=== PATIENT | male | born 1950 | race Caucasian/White ===

== ENCOUNTER 2016-03-23 20:35 | Emergency (ER) | payer OTHER ==
[~2016-03-23] VITALS: Ht 177.8 cm; Wt 110.2 kg
[~2016-03-23 20:35] MED LIST: AMLO-110 PO; ASPI81TA28 PO; CITA20TA4 PO; LOSA1TAB38 PO; POTASSIUM PO; ROSU5TAB PO; TORS20TA2 PO
[2016-03-23 20:46] VITALS: TEMP 37.1; Ht 177.8 cm; Wt 110.2 kg
[2016-03-23 20:51] VITALS: O2SAT 95
[2016-03-23] MEDS ORDERED: MoRPHine SULFATE 4 MG/ML 1 ML CARP\\VIAL IV STA (21:02)
[2016-03-23] MEDS ORDERED: ONDANSETRON INJ 2 MG/ML 2 ML VIAL IV STA (21:02)
[2016-03-23 21:12] LABS: BASO % 0.4 %; BASO ABS # 0.04 K/uL (0-0.2); COMPLETE YES; EOS % 3.4 %; HEMATOCRIT 48.8 % (42-52); IG% 0.3 %; LYMPH % 16.6 %; LYMPH ABS # 1.55 K/uL (1.2-3.4); MEAN CELL VOLUME 88.4 fL (80-100); MEAN CORPUSCULAR HEMOGLOBIN 32.4 pg (25-34); MEAN CORPUSCULAR HGB CONC 36.7 g/dl (32-36); MONO % 8.1 %; NEUT % 71.2 %; PLATELET COUNT 135 K/uL (130-400); RED BLOOD COUNT 5.52 M/uL (4.7-6.1); WHITE BLOOD COUNT 9.34 K/uL (4.8-10.8)
[2016-03-23 21:29] LABS: BUN/CREATININE RATIO 14.5 (10-20); CALCIUM 8.9 mg/dl (8.5-10.1); CREATININE 0.97 mg/dl (0.60-1.40); POTASSIUM 3.7 mmol/L (3.5-5.1)
[2016-03-23] MEDS ORDERED: POTA20TA16 PO (21:32)
[2016-03-23] MEDS ORDERED: INSDGI SC (21:32)
[2016-03-23] MEDS ORDERED: CITA20TA9 PO (21:35)
[2016-03-23] MEDS ORDERED: ASTN (21:35)
[2016-03-23] MEDS ORDERED: VNTHFA/IN INH (21:35)
[2016-03-23] MEDS ORDERED: ASPI-435 PO (21:35)
[2016-03-23] MEDS ORDERED: CAND1TAB17 PO (21:35)
[2016-03-23] MEDS ORDERED: ACETAMINOPHEN 500 MG TAB PO STA (21:49)
[2016-03-23] MEDS ORDERED: TRIA1SPR4 NAE (21:52)
[2016-03-23] MEDS ORDERED: AMLODIPINE BESYLATE 5 MG TAB PO ONE (22:15)
--- NOTE | 2016-03-23 22:43 | DIAGNOSTIC IMAGING REPORT ---
HEAD CT NONCONTRAST CT DOSE: 537.48 mGy.cm HISTORY: Headache. TECHNIQUE: Multiaxial CT images of the head were performed without the use of intravenous contrast. Automated exposure control was utilized for this study. Comparison: Head CT 10/10/2012. Findings: The paranasal sinuses and mastoid air cells are clear. The calvarium and skull base are intact. The ventricles and sulci are within normal limits. There is no mass, hematoma, midline shift, or acute infarct. The old small lacunar infarct within the left hemipons remains unchanged. Impression: No significant change compared to the prior study. No acute intracranial abnormality. Electronically signed by: Marcelo Caputo M.D. 03/23/2016 10:41 PM Dictated Date/Time: 03/23/2016 10:38 PM
[2016-03-23 22:54] VITALS: BP 173/88; PULSE 60; O2SAT 96
--- NOTE | 2016-03-23 23:02 | EMERGENCY ROOM VISIT NOTE ---
History Report prepared by Humberto: Ganga Rasmussen Under the Supervision of: Dr. Krzysztof Nolan D.O. First contact with patient: 20:43 Chief Complaint: HYPERTENSION Stated Complaint: HIGH BLOOD PRESSURE, FULLER History of Present Illness The patient is a 66 year old male who presents to the Emergency Room with complaints of hypertension that began recently. 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 The patient is not currently in any pain. The patient was getting 4 teeth pulled today when his blood pressure was elevated. He was feeling okay when he left; however, he began to get a headache in both of his temples while having his second or third tooth removed. The patient currently takes Aspirin, Celexa 20 mg 1 a day, Atacand 4 mg 1 a day, Torsemide 20 mg 1 a day, Norvasc 5 mg twice a day, Clorcon half tab daily 20 mg. He denies any shortness of breath, chest pain, numbness, and weakness. He has a past medical history of a stroke. He states that this does not feel like his prior stroke. Source of History: patient Onset: recently Position: other (global) Symptom Intensity: 196/86 Quality: other (HTN) Timing: other (persistent) Associated Symptoms: + headache, No SOB, No chest pain, No numbness, No weakness Review of Systems See HPI for pertinent positives & negatives. A total of 10 systems reviewed and were otherwise negative. Past Medical & Surgical Medical Problems: (1) Benign hypertension (2) CVA (3) Diabetes (4) Heart disease Family History Diabetes mellitus FH: cancer FH: gallbladder disease FH: heart disease FH: lung disease Hypertension Social History Smoking Status: Former Smoker Smokeless Tobacco Use: Yes Alcohol Use: none Drug Use: none Marital Status: Housing Status: lives with significant other Occupation Status: retired Current/Historical Medications Scheduled Amlodipine (Norvasc), 5 MG PO DAILY Aspirin (Aspirin Ec), 81 MG PO DAILY Candesartan Cilexetil (Candesartan Cilexetil), 1 TAB PO DAILY Citalopram Hydrobromide (Celexa), 20 MG PO DAILY Insulin Glargine (Lantus), 20 UNIT SC QPM Potassium Ext Rel (Klor-Con), 10 MEQ PO DAILY Torsemide (Demadex), 20 MG PO DAILY Triamcinolone Acetonide (Nasal (Nasacort Allergy 24Hr), 2 SPRAYS ANA DAILY Scheduled PRN Albuterol Hfa (Ventolin Hfa), 2 PUFFS INH QID PRN for SOB/Wheezing Azelastine Hcl (Astelin Nasal [place]), 1 SPRAYS NA BID PRN for Nasal Congestion Allergies Coded Allergies: BEE STING (Verified Allergy, Severe, ., 04/22/10) Carvedilol (Verified Allergy, extreme fatigue.pain,difficulty walking, sensitivity to sun, 10/10/12) per [facility] Physical Exam Vital Signs Date Time Temp Pulse Resp B/P Pulse Ox O2 Delivery O2 Flow Rate FiO2 03/23/16 22:54 60 18 173/88 96 Room Air 03/23/16 22:21 60 18 196/97 96 03/23/16 22:00 56 15 213/92 95 03/23/16 21:45 63 16 220/95 94 03/23/16 21:30 63 17 201/94 95 03/23/16 21:15 53 12 213/92 94 03/23/16 20:52 64 18 195/99 95 Room Air 03/23/16 20:52 62 03/23/16 20:51 95 Room Air 03/23/16 20:46 37.1 62 14 214/132 96 Room Air Physical Exam GENERAL: alert, well appearing, well nourished, no distress, non-toxic, sitting up in bed EYE EXAM: normal conjunctiva, PERRL and EOM's intact OROPHARYNX: no exudate, no erythema, lips, buccal mucosa, and tongue normal and mucous membranes are moist, partial plate in the upper along with bleeding. EAR: Right canal with mild bleeding from obvious trauma NECK: supple, no nuchal rigidity, no adenopathy, non-tender LUNGS: Clear to auscultation. Normal chest wall mechanics HEART: no murmurs, S1 normal and S2 normal, ABDOMEN: abdomen soft, non-tender, normo-active bowel sounds, no masses, no rebound or guarding. BACK: Back is symmetrical on inspection and there is no deformity, no midline tenderness, no CVA tenderness. SKIN: no rashes and no bruising UPPER EXTREMITIES: upper extremities are grossly normal. LOWER EXTREMITIES: No pitting edema. NEURO EXAM: Normal sensorium, cranial nerves II-XII intact, normal speech, no weakness of arms, no weakness of legs. No drift. Finger to nose intact. Gross sensation intact. Medical Decision & Procedures ER Provider Diagnostic Interpretation: Radiology results have been interpreted by the radiologist and reviewed by me. HEAD CT NONCONTRAST CT DOSE: 537.48 mGy.cm HISTORY: Headache. TECHNIQUE: Multiaxial CT images of the head were performed without the use of intravenous contrast. Automated exposure control was utilized for this study. Comparison: Head CT 10/10/2012. Findings: The paranasal sinuses and mastoid air cells are clear. The calvarium and skull base are intact. The ventricles and sulci are within normal limits. There is no mass, hematoma, midline shift, or acute infarct. The old small lacunar infarct within the left hemipons remains unchanged. Impression: No significant change compared to the prior study. No acute intracranial abnormality. Electronically signed by: Marcelo Caputo M.D. 03/23/2016 10:41 PM Dictated Date/Time: 03/23/2016 10:38 PM Laboratory Results 03/23/16 20:50 Red Blood Count 5.52, Mean Corpuscular Volume 88.4, Mean Corpuscular Hemoglobin 32.4, Mean Corpuscular Hemoglobin Concent 36.7, Mean Platelet Volume 12.0, Neutrophils (%) (Auto) 71.2, Lymphocytes (%) (Auto) 16.6, Monocytes (%) (Auto) 8.1, Eosinophils (%) (Auto) 3.4, Basophils (%) (Auto) 0.4, Neutrophils # (Auto) 6.64, Lymphocytes # (Auto) 1.55, Monocytes # (Auto) 0.76, Eosinophils # (Auto) 0.32, Basophils # (Auto) 0.04 03/23/16 20:50 Test 03/23/16 20:50 White Blood Count 9.34 K/uL (4.8-10.8) Red Blood Count 5.52 M/uL (4.7-6.1) Hemoglobin 17.9 g/dL (14.0-18.0) Hematocrit 48.8 % (42-52) Mean Corpuscular Volume 88.4 fL (80-100) Mean Corpuscular Hemoglobin 32.4 pg (25-34) Mean Corpuscular Hemoglobin Concent 36.7 g/dl (32-36) Platelet Count 135 K/uL (130-400) Mean Platelet Volume 12.0 fL (7.4-10.4) Neutrophils (%) (Auto) 71.2 % Lymphocytes (%) (Auto) 16.6 % Monocytes (%) (Auto) 8.1 % Eosinophils (%) (Auto) 3.4 % Basophils (%) (Auto) 0.4 % Neutrophils # (Auto) 6.64 K/uL (1.4-6.5) Lymphocytes # (Auto) 1.55 K/uL (1.2-3.4) Monocytes # (Auto) 0.76 K/uL (0.11-0.59) Eosinophils # (Auto) 0.32 K/uL (0-0.5) Basophils # (Auto) 0.04 K/uL (0-0.2) RDW Standard Deviation 39.8 fL (36.4-46.3) RDW Coefficient of Variation 12.3 % (11.5-14.5) Immature Granulocyte % (Auto) 0.3 % Immature Granulocyte # (Auto) 0.03 K/uL (0.00-0.02) Anion Gap 8.0 mmol/L (3-11) Est Creatinine Clear Calc Drug Dose 95.6 ml/min Estimated GFR () 95.2 Estimated GFR (Non- 82.2 BUN/Creatinine Ratio 14.5 (10-20) Calcium Level 8.9 mg/dl (8.5-10.1) Laboratory results per my review. Medications Administered Medications (Trade) Dose Ordered Sig/Neptali Route Start Time Stop Time Status Last Admin Dose Admin Ondansetron HCl (Zofran Inj) 4 mg NOW STAT IV 03/23/16 21:02 03/23/16 21:03 DC 03/23/16 21:09 4 MG Acetaminophen (Tylenol Tab) 1,000 mg NOW STAT PO 03/23/16 21:49 03/23/16 21:50 DC 03/23/16 21:54 1,000 MG Amlodipine Besylate (Norvasc Tab) 5 mg NOW ONCE PO 03/23/16 22:15 03/23/16 22:16 DC 03/23/16 22:26 5 MG ECG Indication: other (HTN) Rate (beats per minute): 62 Rhythm: normal sinus Findings: no ectopy, other (normal axis) ED Course ED COURSE: Vital signs were reviewed and showed hypertension. The patients medical record was reviewed The above diagnostic studies were performed and reviewed. ED treatments and interventions as stated above. 2042: The patient was evaluated in room A3. A complete history and physical examination was performed. 2101: Zofran Inj 4 mg Iv, Morphine Sulfate 4 mg IV 2148: Tylenol Tab 1000 mg PO 2214: Norvasc Tab 5 mg PO 2299: Upon reevaluation, the patient is resting .I discussed my findings with the patient and he understands and agrees with the treatment plan. The patient remained stable while under my care. The patient appeared well at the time of discharge. Medical Decision Differential Diagnosis includes but is not limited to headache, tension headache , cluster headache, migraine, subarachnoid hemorrhage, meningitis, mass, central venous thrombus, concussion, trauma and epidural/subdural hemorrhage. Patient is a 66-year-old male who presents the ER for headache associated with hypertension. His headache started following having 4 teeth removed around 3 PM. Following this a grossly worsened. No change in vision or weakness in his arms or legs. Patient has no other complaints at this time. He does have a history of a CVA. Blood pressure was in the 220s. Per his medications he is supposed to take Norvasc 5 mg twice a day but he notes that he takes once a day. He rested in the ER comfortably. He was given 5 mg of his Norvasc as his pressure initially came down but then came back up. Following 5 mg of Norvasc his blood pressure came down to 170s. He is completely a symptomatically. He is discharged following a negative CT head to follow-up with his PCP for his elevated blood pressure. Discussed with Pt concerning signs and symptoms to watch out for. Pt was instructed to follow up with their PCP and discussed with the patient their option to return to the ED at anytime for persistent or worsening symptoms. The appropriate anticipatory guidance and out-patient management, including indications for return to the emergency department, were explained at length to the patient and understood. Impression Primary Impression: HTN (hypertension) Additional Impression: Headache Scribe Attestation The scribe's documentation has been prepared under my direction and personally reviewed by me in its entirety. I confirm that the note above accurately reflects all work, treatment, procedures, and medical decision making performed by me. Departure Information Dispostion Home / Self-Care Referrals Jeet Mi M.D. (MEDICAL) (PCP) Forms HOME CARE DOCUMENTATION FORM, IMPORTANT VISIT INFORMATION, WORK / SCHOOL INSTRUCTIONS Patient Instructions A Signature Page, My [employer] Additional Instructions Please follow up with your primary care doctor with in the next 24 hours. Any worsening of your symptoms, please return to the ED immediately. This includes fevers greater than 100.4, worsening headache, weakness or numbness in arms or legs, change in vision, neck pain, persistent nausea vomiting, or any other concerning signs or symptoms from your standpoint.
== END 2016-03-23 23:14 | disposition home or self-care (01) ==
LOC: C.EDB 20:36 → C.EDA 23:14
DX: I10 Essential (primary) hypertension (principal); R51 Headache; E11.9 Type 2 diabetes mellitus without complications; I51.9 Heart disease, unspecified; Z86.73 Personal history of transient ischemic attack (TIA), and cerebral infarction without residual deficits; Z79.82 Long term (current) use of aspirin; Z79.4 Long term (current) use of insulin; Z79.899 Other long term (current) drug therapy; Z87.891 Personal history of nicotine dependence; Z91.030 Bee allergy status; Z88.8 Allergy status to other drugs, medicaments and biological substances; Z83.3 Family history of diabetes mellitus; Z80.9 Family history of malignant neoplasm, unspecified; Z83.79 Family history of other diseases of the digestive system; Z82.49 Family history of ischemic heart disease and other diseases of the circulatory system

== ENCOUNTER → 2017-02-09 | Outpatient (CLI) | payer OTHER ==
[~2017-02-09] MED LIST changes: +ASTN; +CAND1TAB17 PO; -CITA20TA4 PO; +CITA20TA9 PO; +INSDGI SC; -LOSA1TAB38 PO; +POTA20TA16 PO; -POTASSIUM PO; -ROSU5TAB PO; +TRIA1SPR4 NAE; +VNTHFA/IN INH
[2017-02-09 17:38] LABS: HEMATOCRIT 44.4 % (42-52); MEAN CELL VOLUME 89.7 fL (80-100); MEAN CORPUSCULAR HEMOGLOBIN 31.7 pg (25-34); MEAN CORPUSCULAR HGB CONC 35.4 g/dl (32-36); MEAN PLATELET VOLUME 11.9 fL (7.4-10.4); PLATELET COUNT 138 K/uL (130-400); RED BLOOD COUNT 4.95 M/uL (4.7-6.1); WHITE BLOOD COUNT 6.69 K/uL (4.8-10.8)
[2017-02-09 17:51] LABS: URINE APPEARANCE CLEAR (CLEAR); URINE BILIRUBIN NEG (NEG); URINE COLOR YELLOW; URINE NITRITE NEG (NEG); URINE PH 6.5 (4.5-7.5); UROBILINOGEN NEG (NEG)
[2017-02-09 17:56] LABS: MANUAL MICROSCOPIC REQUIRED? NO; REVIEW REQ? NO
[2017-02-09 18:14] LABS: ALT/SGPT 67 U/L (12-78); AST/SGOT 50 U/L (15-37); BLOOD UREA NITROGEN 11 mg/dl (7-18); BUN/CREATININE RATIO 11.3 (10-20); CALCIUM 8.5 mg/dl (8.5-10.1); CARBON DIOXIDE 29 mmol/L (21-32); CHLORIDE 103 mmol/L (98-107); CREATININE 0.96 mg/dl (0.60-1.40); GLUCOSE 248 mg/dl (70-99); SODIUM 137 mmol/L (136-145)
[2017-02-09 18:25] LABS: ALB/GLOB RATIO 0.9 (0.9-2); ALKALINE PHOSPHATASE 112 U/L (45-117)
[2017-02-09 18:27] LABS: URINE PROTIEN/CREAT RATIO 0.5 (0-0.2); URINE TOTAL PROTEIN 61.8 mg/dl (0-11.9)
== END | disposition home or self-care (01) ==
LOC: C.LAB1850 16:19
PROVIDERS: ATTEND Internal Medicine Nephrology
DX: I10 Essential (primary) hypertension (principal); E66.9 Obesity, unspecified; R80.9 Proteinuria, unspecified

== ENCOUNTER 2017-04-04 18:34 | Observation (INO) | payer OTHER ==
[~2017-04-04] VITALS: Ht 177.8 cm; Wt 112.6 kg
[~2017-04-04 18:34] MED LIST changes: -ASTN; -CITA20TA9 PO; -INSDGI SC; -TRIA1SPR4 NAE; -VNTHFA/IN INH
[2017-04-04] MEDS ORDERED: KETOROLAC TROMETHAMINE 60 MG/2 ML VIAL IM STA (18:54)
[2017-04-04] MEDS ORDERED: DIAZEPAM 5MG TAB PO STA (18:54)
--- NOTE | 2017-04-04 19:06 | EMERGENCY ROOM VISIT NOTE ---
ED Visit Note First contact with patient: 18:40 CHIEF COMPLAINT: Shoulder pain HISTORY OF PRESENT ILLNESS: This is a 67-year-old male who presents to the emergency department with complaint of right shoulder and arm pain that started today at about 2 PM. He states the pain started a few minutes after moving some furniture and lifting some heavier objects, and has gradually become worse since that time. He states the pain starts in his right shoulder blade area and shoots into the right shoulder and down his arm, worse with certain movements, better with certain positioning and rest, a constant ache with intermittent sharp shooting pains, describes as "nerve pain," currently rates as 10/10. He took a tramadol and 2 Tylenol without much improvement. There is some limitation of motion of the arm because of the pain. The patient did not have any direct trauma to the shoulder or arm. He denies any numbness/tingling , or weakness of the arm. He denies any other symptoms of headaches, neck pain , chest pain, shortness of breath, abdominal pain, nausea or vomiting, dizziness , syncope, or rash. He is right hand dominant. REVIEW OF SYSTEMS: A complete 10 point review of systems was reviewed with the patient with pertinent positives and negatives as per history of present illness. All else were negative. PMH: Reviewed in chart. SOCIAL HISTORY: Patient lives at home. Denies tobacco use. ALLERGIES: Reviewed in chart. PHYSICAL EXAM: Vital Signs: Reviewed nurse's notes. CONSTITUTIONAL: Pleasant and cooperative. No acute distress, but appears uncomfortable during exam. Non-diaphoretic. HEENT: Normocephalic, atraumatic. Pupils equal, round and reactive to light, EOMI. TMs normal. Pharynx normal. NECK: Supple, full active range of motion without discomfort. RESPIRATORY: Clear to auscultation bilaterally with no wheezing, crackles, rhonchi or stridor. Equal expansion bilaterally. CARDIOVASCULAR: Regular rate and rhythm with no murmurs, rubs or gallops. Normal peripheral perfusion. No edema. GASTROINTESTINAL: Soft, nontender, nondistended. No palpable masses or HSM. Bowel sounds present in all quadrants. MUSCULOSKELETAL: The right shoulder is not swollen or deformed on inspection. The range of motion is slow due to pain, but not limited. Normal 5/5 strength against resistance with pronation, supination, flexion, extension, abduction, and adduction. There is no tenderness of the distal clavicle. There is muscle tenderness along the right shoulder blade and upper back into the shoulder with moderate spasm and reproduces patient's pain. INTEGUMENTARY: No rash or other significant dermatologic conditions noted. NEUROLOGIC: Alert and oriented X 4 with normal affect. Cranial nerves II-XII grossly intact. No focal neurologic deficits noted. Normal strength and sensation all four extremities. Normal speech. Normal gait observed. EMERGENCY DEPARTMENT COURSE: I examined the patient in room D5. Patient's pain seems to be coming from a muscle spasm in his right upper shoulder blade area. There is full range of motion of the right shoulder and right elbow. There is no bony tenderness on exam, no swelling. I do not feel a shoulder x- ray would be of benefit at this time. Patient was treated with IM Toradol and PO Valium, he initially reports good improvement in his pain and is resting comfortably in the stretcher. Nursing staff notified me that the patient is complaining that the shoulder and arm pain are getting worse again, patient requesting something additional for the pain. He complains that the constant ache in his shoulder and arm has never gone away. Given his age and risk factors of DM and HTN, will check an EKG, CXR, basic labs, and POC troponin, as his symptoms have been ongoing for 6 hours, to rule out ACS. Will also do X-ray of the cervical spine and shoulder to rule out potential bony abnormalities. EKG reviewed, sinus bradycardia without acute ischemic changes, no significant change when compared to previous EKG of 03/23/2016, by my interpretation. Patient was given a dose of IV morphine, with good improvement in his pain, now rating 3/10. POC troponin is POSITIVE at 0.120, concerning for NSTEMI. Dr. Dewitt aware. Patient given aspirin and started on heparin drip. Labs reviewed and are interpreted by me as no leukocytosis, no anemia, hyperglycemia , no other significant electrolyte abnormality, normal renal function. AP 1 view CXR by my read shows mild cardiomegaly, no focal consolidation or significant pulmonary edema. C-spine and shoulder x-rays cancelled. Patient referred to Dr. Cote, Hospitalist, to evaluate for admission. Medication Reconciliation: I attest that I have personally reviewed the patient' s current medication list. Blood pressure screening: The patient was found to have an elevated blood pressure and was referred to the inpatient team for further management. I discussed the patient with Dr. Dewitt, who agrees with my assessment and plan. Problem List Medical Problems: (1) Benign hypertension Status: Chronic (2) CVA Status: Resolved (3) Diabetes Status: Chronic (4) Heart disease Status: Chronic Current/Historical Medications Scheduled Amlodipine (Norvasc), 10 MG PO DAILY Aspirin (Aspirin Ec), 81 MG PO DAILY Chlorthalidone (Hygroton), 25 MG PO DAILY Citalopram Hydrobromide (Celexa), 20 MG PO DAILY Insulin Glargine (Lantus), 24 UNIT SC QPM Metoprolol Succ (Toprol Xl) (Toprol-Xl), 25 MG PO DAILY Spironolactone (Aldactone), 25 MG PO DAILY Triamcinolone Acetonide (Nasal (Nasacort Allergy 24Hr), 2 SPRAYS ANA DAILY [[place] Extract], 500 MG PO BID Scheduled PRN Acetaminophen (Tylenol), 1,000 MG PO Q6 PRN for Headache or Pain Albuterol Hfa (Ventolin Hfa), 2 PUFFS INH QID PRN for SOB/Wheezing Azelastine Hcl (Astelin Nasal [place]), 1 SPRAYS NA BID PRN for Nasal Congestion Tramadol (Ultram), 50 MG PO TODAY PRN for Pain Allergies Coded Allergies: BEE STING (Verified Allergy, Severe, ., 04/22/10) Carvedilol (Verified Allergy, Unknown, extreme fatigue.pain,difficulty walking,sensitivity to sun, 01/04/17) per gmg Vital Signs Date Time Temp Pulse Resp B/P (MAP) Pulse Ox O2 Delivery O2 Flow Rate FiO2 04/04/17 20:39 48 94 04/04/17 20:24 47 20 94 Room Air 04/04/17 20:21 147/79 04/04/17 18:36 36.8 62 18 187/91 95 Room Air Laboratory Results 04/04/17 20:30 Red Blood Count 5.14, Mean Corpuscular Volume 88.9, Mean Corpuscular Hemoglobin 32.3, Mean Corpuscular Hemoglobin Concent 36.3, Mean Platelet Volume 11.6, Neutrophils (%) (Auto) 69.4, Lymphocytes (%) (Auto) 19.9, Monocytes (%) (Auto) 7.0, Eosinophils (%) (Auto) 3.0, Basophils (%) (Auto) 0.4, Neutrophils # (Auto) 7.47, Lymphocytes # (Auto) 2.14, Monocytes # (Auto) 0.75, Eosinophils # (Auto) 0.32, Basophils # (Auto) 0.04 04/04/17 20:30 Test 04/04/17 20:30 04/04/17 20:38 04/04/17 21:01 White Blood Count 10.75 K/uL (4.8-10.8) Red Blood Count 5.14 M/uL (4.7-6.1) Hemoglobin 16.6 g/dL (14.0-18.0) Hematocrit 45.7 % (42-52) Mean Corpuscular Volume 88.9 fL (80-100) Mean Corpuscular Hemoglobin 32.3 pg (25-34) Mean Corpuscular Hemoglobin Concent 36.3 g/dl (32-36) Platelet Count 130 K/uL (130-400) Mean Platelet Volume 11.6 fL (7.4-10.4) Neutrophils (%) (Auto) 69.4 % Lymphocytes (%) (Auto) 19.9 % Monocytes (%) (Auto) 7.0 % Eosinophils (%) (Auto) 3.0 % Basophils (%) (Auto) 0.4 % Neutrophils # (Auto) 7.47 K/uL (1.4-6.5) Lymphocytes # (Auto) 2.14 K/uL (1.2-3.4) Monocytes # (Auto) 0.75 K/uL (0.11-0.59) Eosinophils # (Auto) 0.32 K/uL (0-0.5) Basophils # (Auto) 0.04 K/uL (0-0.2) RDW Standard Deviation 40.5 fL (36.4-46.3) RDW Coefficient of Variation 12.7 % (11.5-14.5) Immature Granulocyte % (Auto) 0.3 % Immature Granulocyte # (Auto) 0.03 K/uL (0.00-0.02) Anion Gap 9.0 mmol/L (3-11) Est Creatinine Clear Calc Drug Dose 80.2 ml/min Estimated GFR () 77.8 Estimated GFR (Non- 67.1 BUN/Creatinine Ratio 18.9 (10-20) Calcium Level 9.5 mg/dl (8.5-10.1) Bedside Troponin I 0.120 ng/ml (0-0.045) Medications Administered Medications (Trade) Dose Ordered Sig/Neptali Route Start Time Stop Time Status Last Admin Dose Admin Ketorolac Tromethamine (Toradol Inj) 60 mg NOW STAT IM 04/04/17 18:54 04/04/17 18:57 DC 04/04/17 19:03 60 MG Diazepam (Valium Tab) 10 mg NOW STAT PO 04/04/17 18:54 04/04/17 18:57 DC 04/04/17 19:01 10 MG Morphine Sulfate (MoRPHine SULFATE INJ) 4 mg NOW STAT IV 04/04/17 20:06 04/04/17 20:09 DC 04/04/17 20:38 4 MG Departure Information Impression Primary Impression: NSTEMI (non-ST elevated myocardial infarction) Dispostion Being Evaluated By Hospitalist Condition FAIR Referrals No Doctor, Assigned (PCP) Patient Instructions [facility]
[2017-04-04] MEDS ORDERED: AMLO-114 PO (19:28)
[2017-04-04] MEDS ORDERED: METO25TA3 PO (19:28)
[2017-04-04] MEDS ORDERED: ACET-1256 PO (19:28)
[2017-04-04] MEDS ORDERED: SPIR25TA PO (19:28)
[2017-04-04] MEDS ORDERED: CHERRY EXTRACT PO (19:28)
[2017-04-04] MEDS ORDERED: HYG/25 PO (19:28)
[2017-04-04] MEDS ORDERED: TRAM-10 PO (19:28)
[2017-04-04] MEDS ORDERED: MoRPHine SULFATE 4 MG/ML 1 ML CARP\\VIAL IV STA (20:06)
[2017-04-04 20:45] LABS: BASO % 0.4 %; BASO ABS # 0.04 K/uL (0-0.2); EOS ABS # 0.32 K/uL (0-0.5); HEMATOCRIT 45.7 % (42-52); HEMOGLOBIN 16.6 g/dL (14.0-18.0); IG# 0.03 K/uL (0.00-0.02); LYMPH % 19.9 %; LYMPH ABS # 2.14 K/uL (1.2-3.4); MEAN CELL VOLUME 88.9 fL (80-100); MEAN CORPUSCULAR HEMOGLOBIN 32.3 pg (25-34); MEAN CORPUSCULAR HGB CONC 36.3 g/dl (32-36); MEAN PLATELET VOLUME 11.6 fL (7.4-10.4); MONO ABS # 0.75 K/uL (0.11-0.59); NEUT % 69.4 %; NEUT ABS # 7.47 K/uL (1.4-6.5); PLATELET COUNT 130 K/uL (130-400); RED CELL DISTRIBUTION WIDTH CV 12.7 % (11.5-14.5); RED CELL DISTRIBUTION WIDTH SD 40.5 fL (36.4-46.3); WHITE BLOOD COUNT 10.75 K/uL (4.8-10.8)
[2017-04-04 21:01] LABS: CALCIUM 9.5 mg/dl (8.5-10.1); CREATININE 1.14 mg/dl (0.60-1.40); POTASSIUM 3.7 mmol/L (3.5-5.1)
[2017-04-04] MEDS ORDERED: ASPIRIN 81 MG CHEW PO STA (21:01)
[2017-04-04] MEDS ORDERED: HEPARIN 25000 UNIT/500 ML D5W ONE (21:13)
[2017-04-04] MEDS ORDERED: HEPARIN SOD (PORCINE) 1000 UNIT/ML 10 ML VIAL ONE (21:14)
--- NOTE | 2017-04-04 21:27 | DIAGNOSTIC IMAGING REPORT ---
CHEST ONE VIEW PORTABLE HISTORY: 67 years-old Male ACS workup acute chest and bilateral shoulder pain COMPARISON: Chest radiograph 10/10/2012 TECHNIQUE: Portable AP view of the chest FINDINGS: Cardiomediastinal and hilar silhouettes are within normal limits. Atherosclerosis of the aorta. No pneumothorax, pleural effusion, focal airspace consolidation or overt pulmonary edema. Bones of the chest appear grossly intact. IMPRESSION: No acute process. The above report was generated using voice recognition software. It may contain grammatical, syntax or spelling errors. Electronically signed by: Raffi Naranjo M.D. 04/04/2017 9:25 PM Dictated Date/Time: 04/04/2017 9:23 PM
[2017-04-04] MEDS ORDERED: INSDGI SC (21:32)
[2017-04-04] MEDS ORDERED: CITA20TA9 PO (21:35)
[2017-04-04] MEDS ORDERED: VNTHFA/IN INH (21:35)
[2017-04-04] MEDS ORDERED: ASTN (21:35)
[2017-04-04] MEDS ORDERED: TRIA1SPR4 NAE (21:52)
[2017-04-04 21:55] LABS: ALBUMIN 3.8 gm/dl (3.4-5.0); TOTAL PROTEIN 7.4 gm/dl (6.4-8.2)
[2017-04-04] MEDS ORDERED: IV FLUIDS COMPLETED PRN (22:00)
[2017-04-04] MEDS ORDERED: DEXTROSE 50% 50 ML SYR IV PRN (22:15)
[2017-04-04] MEDS ORDERED: ACETAMINOPHEN 325 MG TAB PO PRN (22:15)
[2017-04-04] MEDS ORDERED: GLUCAGON FOR INJ 1 MG VIAL SQ PRN (22:15)
[2017-04-04] MEDS ORDERED: TRAMADOL HCL 50 MG TAB PO PRN (22:15)
[2017-04-04] MEDS ORDERED: GLUCOSE 10 TABS/TUBE PO PRN (22:15)
[2017-04-04] MEDS ORDERED: NITROGLYCERIN 0.4 MG SL PER TAB CHARGE SL PRN (22:15)
[2017-04-04] MEDS ORDERED: LORAZEPAM 2 MG/ML 1 ML VIAL IV PRN (22:15)
[2017-04-04] MEDS ORDERED: GLUCOSE 40% GEL 15 GM TUBE PO PRN (22:15)
[2017-04-04] MEDS ORDERED: PROCHLORPERAZINE INJ 5 MG in SYRINGE 4 ML IV PRN (22:15)
[2017-04-04] MEDS: MoRPHine SULFATE 4 MG/ML 1 ML CARP\\VIAL IV PRN (22:48)
[2017-04-04 22:49] VITALS: BP 160/83; PULSE 54; TEMP 36.6; O2SAT 94; BMI 35.6
--- NOTE | 2017-04-04 23:05 | DIAGNOSTIC IMAGING REPORT ---
R SHOULDER MIN 2 VIEWS ROUTINE HISTORY: 67 years-old Male R shoulder pain acute right-sided shoulder pain COMPARISON: Chest radiograph 04/21/2010 TECHNIQUE: 3 views of the right shoulder FINDINGS: Probable bone island of the glenoid. Mild humeral and AC joint degenerative changes. No acute fracture or dislocation. Imaged lung tobar appear clear. IMPRESSION: Mild degenerative changes without acute fracture or dislocation. The above report was generated using voice recognition software. It may contain grammatical, syntax or spelling errors. Electronically signed by: Raffi Naranjo M.D. 04/04/2017 11:04 PM Dictated Date/Time: 04/04/2017 11:03 PM
[2017-04-04] MEDS ORDERED: INSULIN ASPART 100 UNITS/ML 3 ML PEN SC ONE (23:15)
[2017-04-04] MEDS ORDERED: INSULIN GLARGINE SOLOSTAR 100 UNITS/ML 3 ML PEN SC ONE (23:15)
[2017-04-04] MEDS ORDERED: NSS + 20MEQ KCL 1000ML 1,000 ML IV SCH (23:15)
[2017-04-04] MEDS ORDERED: CITALOPRAM 20 MG TAB PO ONE (23:15)
--- NOTE | 2017-04-04 23:46 | HISTORY & PHYSICAL EXAMINATION ---
DATE OF ADMISSION: 04/04/2017 PRIMARY CARE PHYSICIAN: Dr. Driscoll. CHIEF COMPLAINT: Right-sided pain. HISTORY OF PRESENT ILLNESS: History obtained from the patient, family, and records. Medical history significant for CVA, hypertension, hyperlipidemia, past tobacco abuse, DM2, insulin requiring, mood disorder. Chronic bradycardia as per records. Recent confinement 2010 for an ischemic CVA. Patient was moving furniture today when her subsequently noted achy right shoulder pain, neck pain going down to right arm. No headache, no numbness, no recollection of trauma except exertion. No actual chest pain, shortness of breath, or diaphoreses. No previous episodes. R shoulder, RUE pain worse with movement as per patient account. Patient brought to the Emergency Room. Patient given Morphine, Toradol, Valium. POC troponin noted to be abnormal. Aspirin, IV heparin started for possible ACS. Patient currently comfortable. Usual home SBP 140 to 180s as per patient. Compliant with medications. MEDICAL HISTORY: As above. Patient sees [facility] (Dr. Owens) for blood pressure management. Last visit was January 2017. As per outpatient notes, patient known to have chronic bradycardia. Chlorthalidone, spironolactone added to patient's Norvasc and Metoprolol. 2D echo done at that time showed EF 60-65%, LVH, trivial aortic sclerosis. SURGERIES: He has had knee surgery. HOME MEDICATIONS: Include albuterol, aspirin, Astelin, Tylenol, Norvasc, triamcinolone, Celexa, Lantus, Toprol-XL, Aldactone, Ultram, chlorthalidone ALLERGIES: BEES STING, CARVEDILOL. FAMILY HISTORY: Heart disease, lung cancer. PERSONAL AND SOCIAL HISTORY: Past tobacco. No chronic intake of alcoholic beverages. Retired booking officer. REVIEW OF SYSTEMS: As per HPI. All 10-system reviewed, all other ROS negative. PHYSICAL EXAMINATION: VITAL SIGNS: Blood pressure was noted to be 187/91 later 140/80 pulse rate 60, later 52; RR 18, temperature 36.8, sats 98 on room air. GENERAL: Noted to be obese, slightly anxious, no respiratory distress. SKIN: Normal color. Warm. HEENT: Alopecia. [place] palpebral conjunctivae. No ptosis. Dry buccal mucosa. NECK: Short neck, no tenderness, good ROM. CHEST: Clear to auscultation. No tenderness HEART: bradycardic, systolic murmur. ABDOMEN: Soft, nontender. EXTREMITIES: No tenderness in right shoulder, good shoulder ROM. NEUROLOGIC: Coherent, No gross focality. LABORATORY AND IMAGING DATA: Hemoglobin was noted to be 16.6, hematocrit 40, white cell count 10 platelets 130. Sodium 137, potassium 3.7, chloride 101, CO2 27, BUN 20 crea 1 glucose 177. Point of care troponin was noted to be 0.12. EKG as per my interpretation, rate of 50, sinus bradycardia, some T-wave flattening in the inferior leads. Chest x-ray showed no acute process. ASSESSMENT: 1. Right-sided shoulder and neck pain Likely musculoskeletal based on patient initial description of pain worsened with motion following a period of exertion. Unfortunately, pain currently resolved/and unreproducible after initial administration of multiple analgesics at the ER. Rule out acute coronary syndrome/anginal equivalent in a poorly controlled diabetic male. 2. Troponin elevation secondary to hypertensive urgency, suboptimal BP control at home on patient's admission. ro ACS 3. History of cerebrovascular accident as per records. 4. Hyperlipidemia as per records 5. DM2, insulin requiring, suboptimal control as of recent HgA1c of 8 last December,. 6. Past tobacco abuse. PLAN: Observation PCU. Right shoulder x-ray. RE Pain. Continue home aspirin ASA for CAD/stroke prevention. Continue home antihypertensives. [May need to consult patient's md pediatric allergist (Dr. Owens) for additional recommendations if BP uncontrolled.] Follow troponin. Hold IV Heparin started in the ER for suspected ACS for now. Resume IV heparin if next troponin markedly elevated. Inpatient Cardiology evaluation for abnormal troponin as per patient's family request. NPO/sips after midnight in anticipation of any cardiac testing. Basal insulin adjusted for nothing by mouth sips state ISS BG goal 140-180. Carb count coverage indicated for suboptimal blood sugar control once patient diet advanced. Patient due for hemoglobin A1c recheck. DVT prophylaxis Lovenox subcutaneous Full code. MTDD
[2017-04-05] VITALS (12 sets, daily range): BP systolic 69–152; BP diastolic 72–79; PULSE 48–55; TEMP 36.4–37.1; O2SAT 93–95; Ht 177.8 cm; Wt 112.6 kg
--- NOTE | 2017-04-05 01:53 | EMERGENCY ROOM VISIT NOTE ---
ED Visit Note First contact with patient: 18:40 I have personally seen and evaluated the patient with the PA. I agree with the diagnosis and management decisions and have been personally involved in the case. At this time I evaluation, the patient was pain-free. A heparin drip with low-dose bolus was ordered. The patient did receive oral aspirin. I did discuss the findings with the patient and his . He will be evaluated by the hospitalist service for further management. Please see ADAM Martinez' s notes for further details of the history, physical and visit.
[2017-04-05 02:23] LABS: BASO % 0.5 %; BASO ABS # 0.04 K/uL (0-0.2); EOS % 2.7 %; EOS ABS # 0.24 K/uL (0-0.5); HEMATOCRIT 43.5 % (42-52); HEMOGLOBIN 15.7 g/dL (14.0-18.0); IG# 0.03 K/uL (0.00-0.02); LYMPH % 21.8 %; LYMPH ABS # 1.91 K/uL (1.2-3.4); MEAN CELL VOLUME 89.5 fL (80-100); MEAN CORPUSCULAR HEMOGLOBIN 32.3 pg (25-34); MEAN CORPUSCULAR HGB CONC 36.1 g/dl (32-36); MEAN PLATELET VOLUME 11.1 fL (7.4-10.4); MONO % 6.4 %; MONO ABS # 0.56 K/uL (0.11-0.59); NEUT % 68.3 %; NEUT ABS # 5.99 K/uL (1.4-6.5); PLATELET COUNT 125 K/uL (130-400); RED CELL DISTRIBUTION WIDTH CV 12.7 % (11.5-14.5); RED CELL DISTRIBUTION WIDTH SD 40.8 fL (36.4-46.3); WHITE BLOOD COUNT 8.77 K/uL (4.8-10.8)
[2017-04-05 02:36] LABS: PTT PATIENT 24.7 SECONDS (21.0-31.0)
[2017-04-05] MEDS: MoRPHine SULFATE 4 MG/ML 1 ML CARP\\VIAL IV PRN (03:16)
[2017-04-05 08:01] LABS: HEMOGLOBIN A1C 8.6 % (4.5-5.6)
[2017-04-05] MEDS: INSULIN ASPART 100 UNITS/ML 3 ML PEN SC SCH ×4 (08:03→21:00)
[2017-04-05] MEDS: ENOXAPARIN 40 MG/0.4 ML SYR SC SCH (08:06)
[2017-04-05] MEDS: METOPROLOL SUCC 25MG EXT REL TAB PO SCH (08:06)
[2017-04-05] MEDS: ASPIRIN 81 MG ECTAB PO SCH (08:06)
[2017-04-05] MEDS: AMLODIPINE BESYLATE 5 MG TAB PO SCH (08:06)
[2017-04-05] MEDS: INSULIN GLARGINE SOLOSTAR 100 UNITS/ML 3 ML PEN SC SCH ×2 (08:08→21:06)
[2017-04-05] MEDS ORDERED: CeleBREX 200 MG CAP PO ONE (08:45)
[2017-04-05] MEDS ORDERED: CITALOPRAM 20 MG TAB PO SCH ×2 (09:00→21:00)
[2017-04-05] MEDS: CeleBREX 100 MG CAP PO SCH ×2 (09:50→21:00)
--- NOTE | 2017-04-05 09:58 | CARDIOLOGY CONSULTATION ---
DATE OF CONSULTATION: 04/05/2017 REFERRING PHYSICIAN: Cat alexander. REASON FOR CONSULTATION: Right shoulder pain. HISTORY OF PRESENT ILLNESS: This is a 67-year-old male patient, who I last saw in my clinic in 2011. That visit was approximately a year after he sustained a CVA. He has a history of hypertension and dyslipidemia. No significant cardiac history. The patient was then lost to follow up. Yesterday, he was moving some furniture around his home. Later on in the evening, he developed severe right shoulder discomfort radiating into his right arm. This discomfort has been more or less continuous except for analgesics given to him after his hospital admission. He denies shortness of breath or chest pain. He does have some cervical discomfort, which is not severe. He does have a history of trauma to the right shoulder in the past. He denies shortness of breath or dyspnea. His EKG shows a sinus bradycardia and no acute changes that would suggest ACS. His second cardiac markers are elevated in an indeterminant range. ALLERGIES: CARVEDILOL AND BEESTINGS. PAST MEDICAL HISTORY: As outlined above, the patient sustained a CVA in 2010. He has been treated for hypertension and dyslipidemia. He is a type 2 diabetic that requires insulin. FAMILY MEDICAL HISTORY: Noncontributory. SOCIAL HISTORY: The patient chews tobacco. He is a former financial compliance officer. REVIEW OF SYSTEMS: A 10-point review of systems is negative except for the history of chief complaint. PHYSICAL EXAMINATION: GENERAL: He is alert and oriented. VITAL SIGNS: Blood pressure is 127/70 and pulse is regular at 50 beats per minute. He is afebrile. HEENT: He is normocephalic. Pupils are equal and reactive to light. Extraocular muscles are intact bilaterally. NECK: The neck veins are flat. Carotids have good upstrokes bilaterally without bruits. Thyroid is nonpalpable. RESPIRATORY: Breath sounds equal bilaterally and clear to auscultation. CARDIOVASCULAR: Heart has a regular rhythm. Normal S1 and S2. No S3 or S4. No cardiac rubs or murmurs. GASTROINTESTINAL: Abdomen is soft and nontender without organomegaly. EXTREMITIES: Free of edema, digit clubbing, or cyanosis. NEUROLOGIC: Grossly intact. SKIN: Warm to touch. LYMPH NODES: Negative to palpation. LABORATORY DATA: Hemoglobin is 15.7 and WBC count of 8.77. Hemoglobin A1c is 8.6. Creatinine is 1.14. Second troponin is 0.12. Third one is pending this morning. X-ray of the right shoulder indicates degenerative joint disease. Chest x-ray is unremarkable. EKG shows sinus bradycardia without acute changes. IMPRESSION: 1. Right shoulder discomfort, which seems to be more musculoskeletal or cervical radiculopathy than a cardiac etiology. 2. Previous history of cerebrovascular accident. 3. History of hypertension, diabetes and dyslipidemia. 4. History of chronic bradycardia. RECOMMENDATIONS: As outlined above, I think that his discomfort is atypical for cardiac pain. I am uncertain as to why he has had a borderline elevation in his second troponin, but the third one is being obtained this morning and we will review. I think the patient can eat. I am going to start him on Celebrex for his discomfort. Physical therapy will be ordered and I think an orthopedic consult would be helpful.
--- NOTE | 2017-04-05 10:23 | DIAGNOSTIC IMAGING REPORT ---
CERVICAL SPINE 5 VIEWS HISTORY: right shoulder and arm discomfort COMPARISON: None. FINDINGS: The cervical spine is visualized from C1 through C7. There is no fracture. No subluxation. Disc spaces are preserved. Prevertebral soft tissues and the atlantodens interval are intact. Straightening of the cervical spine. IMPRESSION: No fracture or subluxation within the cervical spine. Straightening of the cervical spine. Electronically signed by: Marcelo Caputo M.D. 04/05/2017 10:22 AM Dictated Date/Time: 04/05/2017 10:21 AM
--- NOTE | 2017-04-05 12:40 | ECHOCARDIOGRAM REPORT ---
*NOTICE TO RECEIVING DEMOCRAT AGENCY This information is strictly Confidential and protected under [place] law. [place] law prohibits you from making any further disclosure of this information unless further disclosure is expressly permitted by the written consent of the person to whom it pertains or is authorized by law. A general authorization for the release of medical or other information is not sufficient for this purpose. Hospital accepts no responsibility if the information is made available to any other person, INCLUDING THE PATIENT. Interpretation Summary * Name: AMGALY CHAN Study Date: 04/05/2017 10:50 AM BP: 127/72 mmHg * Patient Location: C.2T\S\S238\S\1 HR: 49 * : 1950 (M/d/yyyy) Gender: Male Height: 70 in * Age: 67 yrs Ethnicity: CA Weight: 248 lb * Ordering Physician: Danial Goel * Referring Physician: Self, Referred * Performed By: Monica Delgadillo RDCS * * Reason For Study: Elevated Troponin * BSA: 2.3 m2 * -- Conclusions -- * Normal LV chamber size with moderate concentric LVH. * Normal LV systolic function, EF 55-60%. * No segmental left ventricular wall motion abnormalities are noted. * Grade I diastolic dysfunction. * Aortic valve sclerosis mild, without significant aortic valvular stenosis. Mild aortic regurgitation. * Trace mitral regurgitation. * Mild tricuspid regurgitation. Procedure Details * A complete two-dimensional transthoracic echocardiogram was performed (2D, M-mode, Doppler and color flow Doppler). * A contrast injection of Definity was performed to improve assessment of LV function. * Contrast was injected into an intravenous site in the left arm. * One vial of Definity ultrasound contrast was diluted in normal saline to a total volume of 10 ml. A total of '2' ml of solution was administered during imaging. * Lot # [id number] of Definity utilized for procedure. * Expiration date . * The attending nurse who injected the contrast agent was BHUPINDER Ponce. Left Ventricle * The left ventricle is normal in size. * There is moderate concentric left ventricular hypertrophy. * Ejection Fraction = 55-60%. * Left ventricular systolic function is normal. * No segmental left ventricular wall motion abnormalities are noted. * The left ventricular wall motion is normal. Right Ventricle * The right ventricular cavity size is normal (basal dimension <4.2 cm in right ventricular apical 4-chamber view). * The right ventricular systolic function is normal as assessed by tricuspid annular plane systolic excursion (TAPSE) (normal >1.5 cm). Atria * The left atrial size is normal. * Right atrial size is normal. * No ASD detected; PFO is not assessed. Mitral Valve * The mitral valve anatomy is normal. * There is no mitral valve stenosis. * There is trace mitral regurgitation. Tricuspid Valve * The tricuspid valve anatomy is normal. * There is no tricuspid stenosis. * There is mild tricuspid regurgitation. Aortic Valve * The aortic valve is trileaflet. * Aortic valve sclerosis mild, without significant aortic valvular stenosis. * Mild aortic regurgitation. Pulmonic Valve * The pulmonary valve is not well seen, but the Doppler examination is normal without significant regurgitation or stenosis. Great Vessels * The aortic root and proximal ascending aorta are normal sized. Pericardium/Pleural * There is no pericardial effusion. Left Ventricular Diastolic Function * Grade I diastolic dysfunction, (abnormal relaxation pattern). MMode 2D Measurements and Calculations IVSd 1.5 cm IVSs 2.0 cm LVIDd 4.5 cm LVIDs 2.9 cm LVPWd 1.7 cm LVPWs 1.9 cm IVS/LVPW 0.91 FS 36.5 % EDV(Teich) 93.5 ml ESV(Teich) 31.4 ml EF(Teich) 66.4 % EDV(cubed) 92.5 ml ESV(cubed) 23.7 ml EF(cubed) 74.4 % % IVS thick 33.5 % % LVPW thick 15.1 % LV mass(C)d 310.3 grams LV mass(C)dI 135.7 grams/m\S\2 LV mass(C)s 249.8 grams LV mass(C)sI 109.2 grams/m\S\2 SV(Teich) 62.1 ml SI(Teich) 27.2 ml/m\S\2 SV(cubed) 68.8 ml SI(cubed) 30.1 ml/m\S\2 Ao root diam 2.7 cm Ao root area 5.5 cm\S\2 ACS 1.6 cm LA dimension 3.6 cm asc Aorta Diam 3.4 cm LA/Ao 1.4 LVAd ap4 36.9 cm\S\2 LVLd ap4 8.2 cm EDV(MOD-sp4) 142.5 ml EDV(sp4-el) 141.2 ml LVAs ap4 22.5 cm\S\2 LVLs ap4 7.3 cm ESV(MOD-sp4) 62.9 ml ESV(sp4-el) 58.6 ml EF(MOD-sp4) 55.9 % EF(sp4-el) 58.5 % LVAd ap2 30.5 cm\S\2 LVLd ap2 8.0 cm EDV(MOD-sp2) 104.3 ml EDV(sp2-el) 99.0 ml LVAs ap2 18.8 cm\S\2 LVLs ap2 7.0 cm ESV(MOD-sp2) 50.0 ml ESV(sp2-el) 43.0 ml EF(MOD-sp2) 52.1 % EF(sp2-el) 56.5 % LVLd %diff -2.54 % EDV(MOD-bp) 124.1 ml LVLs %diff -5.40 % ESV(MOD-bp) 57.3 ml EF(MOD-bp) 53.8 % SV(MOD-sp4) 79.7 ml SI(MOD-sp4) 34.8 ml/m\S\2 SV(MOD-sp2) 54.3 ml SI(MOD-sp2) 23.7 ml/m\S\2 SV(MOD-bp) 66.7 ml SI(MOD-bp) 29.2 ml/m\S\2 SV(sp4-el) 82.6 ml SI(sp4-el) 36.1 ml/m\S\2 SV(sp2-el) 55.9 ml SI(sp2-el) 24.5 ml/m\S\2 Doppler Measurements and Calculations MV E max hermilo 93.1 cm/sec MV A max hermilo 90.7 cm/sec MV E/A 1.0 MV dec time 0.37 sec Ao V2 max 199.5 cm/sec Ao max PG 15.9 mmHg Ao max PG (full) 10.0 mmHg AI max hermilo 430.1 cm/sec AI max PG 74.3 mmHg AI dec slope 224.8 cm/sec\S\2 AI P1/2t 560.5 msec LV V1 max PG 5.9 mmHg LV V1 max 121.3 cm/sec PA V2 max 101.0 cm/sec PA max PG 4.1 mmHg TR max hermilo 288.4 cm/sec
[2017-04-05] MEDS ORDERED: HYDROmorphone INJ 1 MG/ML SYR IV PRN (14:45)
--- NOTE | 2017-04-05 15:09 | ORTHOPEDIC CONSULTATION ---
DATE OF ADMISSION: 04/04/2017 CHIEF COMPLAINT: Right upper extremity difficulty. HISTORY OF PRESENT ILLNESS: Issac is a delightful pleasant, I am meeting him for the first time. He is associated with his and daughter. He has right-sided trapezius neck pain as well, upper extremity difficulty and paresthesias roughly to the nerve root on the right hand, particularly his forearm. This all came on abruptly approximately in the midday yesterday, made a trip to the Emergency Room and he had a cardiac workup. He had elevated troponin, which led to his admission, and which led to my consultation. It does appear to be noncardiac related issue. PAST MEDICAL HISTORY: Positive for CVA, hypertension, hyperlipidemia, diabetes mellitus 2. ALLERGIES: BEE STING. FAMILY HISTORY: Heart disease, lung cancer. PAST SURGICAL HISTORY: Knee surgery. MEDICATIONS: Albuterol, aspirin, Norvasc, Celexa, Lantus, Aldactone, Ultram. SOCIAL HISTORY: He is retired. 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 PHYSICAL EXAMINATION: GENERAL: He is alert, oriented. Mentation normal. Does not appear depressed. VITAL SIGNS: Blood pressure slightly elevated, heart rate 52. He seems to be alert, oriented in no terrible distress here, but certainly concerned. HEENT: Essentially normal. ABDOMEN: Soft, nontender. CHEST: Was not auscultated. SKIN: Intact. No warmth, erythema or blemishes such as zoster rashes. MUSCULOSKELETAL: He has an adequate motor strength to the left upper extremity, slight weakness of the right biceps musculature compared to the left. Reflex examination is normal. No hyperreflexia or clonus. IMAGING STUDIES: Plain x-rays were essentially normal. There were some osteophyte formation and some spondylosis, but was not overly impressive. IMPRESSION: 1. Right shoulder neck pain, more than likely musculoskeletal of cervical radicular component, more than likely from the C5-C6 interval and the C6 nerve root. 2. Elevated troponin. 3. History of cerebrovascular accident, hyperlipidemia, and diabetes mellitus 2. DISPOSITION: Right now, we will try to get his pain under control, which should be fairly routine to perform. We also ordered an MRI scan of the cervical spine. I am fairly convinced, we can get this settled down with conservative measures. Depending on the outcome of the MRI scan, surgery could be a possibility in the future.
--- NOTE | 2017-04-05 17:35 | DIAGNOSTIC IMAGING REPORT ---
CERVICAL WITHOUT CONTRAST HISTORY: Pain. Neuropathy. Right upper extremity pain, numbness, weakness TECHNIQUE: Multiplanar multisequence MRI of the cervical spine was performed without the use of contrast. COMPARISON STUDY: None. FINDINGS: Signal characteristics of the vertebral bodies are uniform. Mild disc desiccation is noted throughout the entire cervical region. Signal characteristics the cervical cord are unremarkable. A posterior bulging disc is identified at C6-C7 and minimally at C5-C6. C2-C3: No significant central canal or neural foraminal narrowing. C3-C4: Minimal/mild osteophytic narrowing of the right to lesser extent left neural foramina. C4-C5: Mild osteophytic narrowing right neuroforamina C5-C6: Mild broad-based disc bulge. No significant impact with cervical cord. Neural foramina patent bilaterally. C6-C7: Right posterior disc herniation. Moderate to significant impact upon the right anterior aspect of the cervical cord as well as considerable narrowing of the right neuroforamina. Minimal narrowing left neuroforamina. C7-T1: No significant central canal or neural foraminal narrowing. IMPRESSION: 1. Significant right posterior disc herniation C6-C7 2. This creates significant deformity right anterior aspect of the cervical cord with significant narrowing of the right neuroforamina. 3. Mild broad-based bulging disc C5-C6 with mild osteophytic narrowing of the right neuroforamina. The above report was generated using voice recognition software. It may contain grammatical, syntax or spelling errors. Electronically signed by: Santy Bowie M.D. 04/05/2017 5:33 PM Dictated Date/Time: 04/05/2017 5:29 PM
--- NOTE | 2017-04-05 19:40 | Progress Note ---
Medicine Progress Note Date & Time of Visit: Apr 05, 2017 at ~ 19:00 . Subjective CC: Follow-up visit for right neck / shoulder pain. HPI: Persistent pain right neck & shoulder. Morphine helped. No chest pressure, left arm pain, SOB, nausea, vomiting. ROS: General- no fever, no chills Resp- no cough; no shortness of breath Cardiac- as noted above in HPI GI- no nausea, no vomiting, no diarrhea, no constipation - no dysuria, no difficulty voiding . Objective Last 8 Hrs Date Time Temp Pulse Resp B/P (MAP) Pulse Ox O2 Delivery O2 Flow Rate FiO2 04/05/17 16:00 94 Room Air 04/05/17 15:46 37.1 55 18 140/72 (94) 95 Room Air 04/05/17 12:00 94 Room Air Physical Exam: General- no distress Lungs- clear to auscultation; no respiratory distress Cardiovascular- RRR; no murmur or gallop appreciated; no JVD; no pretibial edema Abdomen- + bowel sounds, soft, nontender Extremities- no cyanosis; no calf tenderness Neuro- alert, oriented Skin- warm & dry . Laboratory Results: Last 24 Hours Test 04/04/17 20:30 04/04/17 20:38 04/04/17 23:17 04/05/17 02:10 White Blood Count 10.75 K/uL 8.77 K/uL Red Blood Count 5.14 M/uL 4.86 M/uL Hemoglobin 16.6 g/dL 15.7 g/dL Hematocrit 45.7 % 43.5 % Mean Corpuscular Volume 88.9 fL 89.5 fL Mean Corpuscular Hemoglobin 32.3 pg 32.3 pg Mean Corpuscular Hemoglobin Concent 36.3 g/dl 36.1 g/dl Platelet Count 130 K/uL 125 K/uL Mean Platelet Volume 11.6 fL 11.1 fL Neutrophils (%) (Auto) 69.4 % 68.3 % Lymphocytes (%) (Auto) 19.9 % 21.8 % Monocytes (%) (Auto) 7.0 % 6.4 % Eosinophils (%) (Auto) 3.0 % 2.7 % Basophils (%) (Auto) 0.4 % 0.5 % Neutrophils # (Auto) 7.47 K/uL 5.99 K/uL Lymphocytes # (Auto) 2.14 K/uL 1.91 K/uL Monocytes # (Auto) 0.75 K/uL 0.56 K/uL Eosinophils # (Auto) 0.32 K/uL 0.24 K/uL Basophils # (Auto) 0.04 K/uL 0.04 K/uL RDW Standard Deviation 40.5 fL 40.8 fL RDW Coefficient of Variation 12.7 % 12.7 % Immature Granulocyte % (Auto) 0.3 % 0.3 % Immature Granulocyte # (Auto) 0.03 K/uL 0.03 K/uL Prothrombin Time 10.4 SECONDS Prothromb Time International Ratio 1.0 Activated Partial Thromboplast Time 25.0 SECONDS 24.7 SECONDS Partial Thromboplastin Ratio 1.0 1.0 Sodium Level 137 mmol/L Potassium Level 3.7 mmol/L Chloride Level 101 mmol/L Carbon Dioxide Level 27 mmol/L Anion Gap 9.0 mmol/L Blood Urea Nitrogen 22 mg/dl Creatinine 1.14 mg/dl Est Creatinine Clear Calc Drug Dose 80.2 ml/min Estimated GFR () 77.8 Estimated GFR (Non- 67.1 BUN/Creatinine Ratio 18.9 Random Glucose 177 mg/dl Estimated Average Glucose 200 mg/dl Hemoglobin A1c 8.6 % Calcium Level 9.5 mg/dl Magnesium Level 2.1 mg/dl Total Bilirubin 0.7 mg/dl Direct Bilirubin 0.1 mg/dl Aspartate Amino Transf (AST/SGOT) 56 U/L Alanine Aminotransferase (ALT/SGPT) 71 U/L Alkaline Phosphatase 93 U/L Troponin I 0.026 ng/ml 0.028 ng/ml Total Protein 7.4 gm/dl Albumin 3.8 gm/dl Lipase 183 U/L Thyroid Stimulating Hormone (TSH) 1.700 uIu/ml Bedside Troponin I 0.120 ng/ml Bedside Glucose 184 mg/dl Triglycerides Level 208 mg/dl Cholesterol Level 190 mg/dl HDL Cholesterol 34 mg/dl LDL Cholesterol, Calculated 114 mg/dl VLDL Cholesterol, Calculated 42 mg/dl Cholesterol/HDL Ratio 5.6 Hepatitis C Antibody Screen NEG Test 04/05/17 07:51 04/05/17 08:02 04/05/17 11:46 04/05/17 17:45 Troponin I 0.027 ng/ml Bedside Glucose 151 mg/dl 174 mg/dl 138 mg/dl Assessment & Plan RIGHT ARM / NECK PAIN Ortho Spine consulted. Plain films of cervical spine demonstrated straightening of cervical spine, otherwise unremarkable. MRI cervical spine demonstrated right posterior disc herniation C6-7. Management per Ortho. ELEVATED TROPONIN Second troponin at 20:38 last evening was slightly elevated at 0.120 (POC testing). Previous and subsequent troponins negative x 3. Right arm / neck pain at time of presentation musculoskeletal as described above. Cardiology consulted. Echo did not show any wall motion abnormalities. No evidence of ACS. Ongoing risk factor modification. HYPERTENSION Continue amlodipine, chlorthalidone. CEREBROVASCULAR DISEASE Continue aspirin. DM TYPE 2 Lantus / NovoLog per hospital stay. VTE PROPHYLAXIS SQ enoxaparin. Ambulate. DISPOSITION Expected discharge to home. Internal Medicine follow-up with Dr. Maldonado. Ortho follow-up with Dr. Reyna. . Current Inpatient Medications: Current Inpatient Medications Medications (Trade) Dose Ordered Sig/Neptali Route Start Time Stop Time Status Last Admin Dose Admin Miscellaneous (Iv Fluids Completed) 1 ea PRN PRN N/A 04/04/17 22:00 04/04/18 21:59 Enoxaparin Sodium (Lovenox Inj) 40 mg Q24H SC 04/05/17 09:00 05/05/17 08:59 04/05/17 08:06 40 MG Potassium Chloride/Sodium Chloride 1,000 ml @ 40 mls/hr Q24H IV 04/04/17 23:15 05/04/17 23:14 04/04/17 23:52 40 MLS/HR Acetaminophen (Tylenol Tab) 650 mg Q4H PRN PO 04/04/17 22:15 05/04/17 22:14 Nitroglycerin (Nitrostat Tab) 0.4 mg UD PRN SL 04/04/17 22:15 05/04/17 22:14 Insulin Aspart (novoLOG ASPART) SLIDING SCALE If C... ACHS SC 04/05/17 07:00 05/05/17 06:59 04/05/17 17:48 2 UNITS Glucose (Glucose 40% Gel) 15-30 GRAMS 15 GRAMS... UD PRN PO 04/04/17 22:15 05/04/17 22:14 Glucose (Glucose Chew Tab) 4-8 Tablets 4 Tabl... UD PRN PO 04/04/17 22:15 05/04/17 22:14 Dextrose (Dextrose 50% 50ML Syringe) 25-50ML OF 50% DW IV FOR... UD PRN IV 04/04/17 22:15 05/04/17 22:14 Glucagon (Glucagon Inj) 1 mg UD PRN SQ 04/04/17 22:15 05/04/17 22:14 Morphine Sulfate (MoRPHine SULFATE INJ) 4 mg Q3H PRN IV 04/04/17 22:15 04/18/17 22:14 04/05/17 03:16 4 MG Tramadol HCl (Ultram Tab) not relieved by tylenol @ Q6H PRN PO 04/04/17 22:15 05/04/17 22:14 04/05/17 14:00 50 MG Prochlorperazine Edisylate 5 mg/ Syringe 5 ml @ 5 mls/min Q6H PRN IV 04/04/17 22:15 05/04/17 22:14 Lorazepam (Ativan Inj) 0.5 mg Q4H PRN IV 04/04/17 22:15 05/04/17 22:14 Amlodipine Besylate (Norvasc Tab) 10 mg DAILY PO 04/05/17 09:00 05/05/17 08:59 04/05/17 08:06 10 MG Aspirin (Ecotrin Tab) 81 mg DAILY PO 04/05/17 09:00 05/05/17 08:59 04/05/17 08:06 81 MG Metoprolol Succinate (Toprol Xl Tab) 25 mg DAILY PO 04/05/17 09:00 05/05/17 08:59 04/05/17 08:06 25 MG Insulin Glargine (Lantus Solostar Pen) 5 units BID SC 04/05/17 09:00 05/05/17 08:59 04/05/17 08:08 5 UNITS Citalopram Hydrobromide (celeXA TAB) 20 mg HS PO 04/05/17 21:00 05/05/17 08:59 Celecoxib (CeleBREX CAP) 100 mg BID PO 04/05/17 09:00 05/05/17 08:59 04/05/17 09:50 100 MG Hydromorphone HCl (Dilaudid Inj) 1 mg Q4H PRN IV 04/05/17 14:45 04/19/17 14:44 Acetaminophen/ Hydrocodone Bitart (Nicasio 5/325 Tab) 1 tab Q4H PRN PO 04/05/17 14:45 04/19/17 14:44
[2017-04-05] MEDS: HYDROCODONE/ACETAMOPHEN 5/325MG TAB PO PRN (22:27)
[2017-04-06] MEDS: HYDROCODONE/ACETAMOPHEN 5/325MG TAB PO PRN ×3 (05:07→12:27)
[2017-04-06 08:00] VITALS: O2SAT 94
[2017-04-06 08:11] VITALS: BP 173/87; PULSE 52; TEMP 36.5; O2SAT 93
[2017-04-06 08:40] LABS: BASO % 0.4 %; BASO ABS # 0.03 K/uL (0-0.2); EOS ABS # 0.45 K/uL (0-0.5); HEMATOCRIT 45.3 % (42-52); HEMOGLOBIN 16.4 g/dL (14.0-18.0); IG# 0.02 K/uL (0.00-0.02); LYMPH % 27.8 %; LYMPH ABS # 2.09 K/uL (1.2-3.4); MEAN CELL VOLUME 88.8 fL (80-100); MEAN CORPUSCULAR HEMOGLOBIN 32.2 pg (25-34); MEAN CORPUSCULAR HGB CONC 36.2 g/dl (32-36); MEAN PLATELET VOLUME 11.6 fL (7.4-10.4); MONO % 9.7 %; MONO ABS # 0.73 K/uL (0.11-0.59); NEUT % 55.8 %; NEUT ABS # 4.19 K/uL (1.4-6.5); PLATELET COUNT 118 K/uL (130-400); RED CELL DISTRIBUTION WIDTH CV 12.4 % (11.5-14.5); RED CELL DISTRIBUTION WIDTH SD 39.7 fL (36.4-46.3); WHITE BLOOD COUNT 7.51 K/uL (4.8-10.8)
[2017-04-06] MEDS: METOPROLOL SUCC 25MG EXT REL TAB PO SCH (08:44)
[2017-04-06] MEDS: INSULIN ASPART 100 UNITS/ML 3 ML PEN SC SCH ×2 (08:50→12:33)
[2017-04-06] MEDS: INSULIN GLARGINE SOLOSTAR 100 UNITS/ML 3 ML PEN SC SCH (08:50)
[2017-04-06] MEDS: AMLODIPINE BESYLATE 5 MG TAB PO SCH (08:52)
[2017-04-06] MEDS: CeleBREX 100 MG CAP PO SCH (08:52)
[2017-04-06] MEDS: ASPIRIN 81 MG ECTAB PO SCH (08:53)
[2017-04-06] MEDS: ENOXAPARIN 40 MG/0.4 ML SYR SC SCH (08:54)
--- NOTE | 2017-04-06 09:09 | PROGRESS NOTE ---
DATE: 04/06/2017 FOLLOWUP VISIT SUBJECTIVE: The patient is a 67-year-old male with a previous history of CVA, hypertension, and dyslipidemia. He presented with right shoulder and arm discomfort. He has been found to have a cervical disk by MRI and is being treated by orthopedics. His last cardiac troponin is negative. I believe that his discomfort is noncardiac in origin. OBJECTIVE: VITAL SIGNS: Blood pressure is 150/70 and pulse is regular at 50. He is afebrile. HEENT: He is normocephalic. Pupils are equal and reactive to light. Extraocular muscles are intact bilaterally. NECK: The neck veins are flat. Carotids have good upstrokes bilaterally without bruits. Thyroid is nonpalpable. RESPIRATORY: Breath sounds equal bilaterally and clear to auscultation. CARDIOVASCULAR: Heart has a regular rhythm. Normal S1 and S2. No S3 or S4. No cardiac rubs or murmurs. GASTROINTESTINAL: Abdomen is soft and nontender without organomegaly. EXTREMITIES: Free of edema, digit clubbing, or cyanosis. NEUROLOGIC: Grossly intact. SKIN: Warm to touch. LYMPH NODES: Negative to palpation. IMPRESSION: 1. Cervical radiculopathy. 2. History of previous cerebrovascular accident. 3. Hypertension, diabetes and dyslipidemia. 4. History of chronic bradycardia. RECOMMENDATIONS: At this point, I do not believe any additional cardiac testing or workup is indicated. I think this is noncardiac cervical disk pain. Cardiology will sign off. Please feel free to reconsult if necessary.
--- NOTE | 2017-04-06 09:11 | ORTHOPEDICS PROGRESS NOTE ---
DATE: 04/06/2017 SUBJECTIVE: Issac is a delightful patient, he is 67 years with cervical disc herniation C6-C7 of the cervical spine. It is classic in its appearance and completely fit his subjective and objective findings. Fortunately, he has minimal weakness and trace weakness of the biceps musculature and biceps, which may be secondary to an old CVA, which is hard to sort out. He does have a Spurling maneuver, rotation and side bending, but no Lhermitte sign. Images reviewed. IMPRESSION: Delightful gentleman, 67 years of age with a disc protrusion cervical spine C6-C7 with impact on the spinal cord, also narrowing of the nerve root. I have looked at the report and I have reviewed the images thoroughly. DISPOSITION: Right now, it will be nice to treat him conservatively next day or so, so we can get this under control with medications. We used some form of narcotic. It is helpful in the short run along with anti-inflammatories such as Toradol. Sometimes Neurontin is helpful. Steroids can be used in addition. We will order him a cervical collar to be worn p.r.n. I anticipate we will be able to get him home today or tomorrow with p.o. medications as he seems to get fairly comfortable in a certain stationary position. If this fails and he is not able to be discharged secondary to pain, then he would stay. We will have a surgery, which will be ACDF of the cervical spine. I do have an opening on , if need be. In summary, I would like to get him home with conservative care along with an assortment of medications. He as an outpatient could get an epidural steroid injection, which would be appropriate as well. First followup appointment, he should call our office number at [phone] and make an appointment as soon as possible after he is discharged.
[2017-04-06] MEDS ORDERED: HYDROCODONE/ACETAMOPHEN 5/325MG TAB PO PRN ×2 (13:15→16:30)
[2017-04-06 15:21] VITALS: BP 163/79; PULSE 52; TEMP 36.6; O2SAT 95
[2017-04-06 16:00] VITALS: O2SAT 96
[2017-04-06] MEDS ORDERED: AMLO-110 PO (16:28)
[2017-04-06] MEDS ORDERED: LPT10 PO (16:29)
[2017-04-06] MEDS ORDERED: AMLO-114 PO (17:28)
[2017-04-06] MEDS ORDERED: HYDROCODONE/ACETAMOPHEN 5/325MG TAB PO SCH ×2 (17:30→17:34)
[2017-04-06] MEDS ORDERED: HYDR-3419 PO (17:32)
--- NOTE | 2017-04-06 17:38 | Discharge Instructions ---
Discharge Instructions Date of Service Apr 06, 2017. Admission Reason for Admission: severe neck pain . Discharge Discharge Diagnosis / Problem: severe neck pain from herniated disc Discharge Goals Goal(s): Decrease discomfort, Improve function Activity Recommendations Activity Limitations: as noted below Lifting Limitations: no more than 5 pounds . Instructions / Follow-Up Instructions / Follow-Up APPOINTMENTS: ORTHOPEDICS Dr. Reyna Please call him for appointment. OTHER INSTRUCTIONS: Seek medical attention if you have: * temperature above 101 * chest pain or trouble breathing * abdominal pain, nausea, vomiting * diarrhea, dark stools or bloody stools * any unanswered questions or concerns Call 911 if symptoms are severe. Call if you have any questions or problems. My cell # is [phone]. You can also reach a [facility] hospitalist on duty at [facility] 24 hours a day by calling [phone]. Please take good care of yourself. Epifanio Wilks . Current Hospital Diet Patient's current hospital diet: Diabetes Type 2 Diet, AHA Diet (Heart Healthy) Discharge Diet Recommended Diet: AHA Diet (Heart Healthy), Diabetes Type 2 Diet Procedures Procedures Performed: CT neck MRI neck echocardiogram Pending Studies Studies pending at discharge: no Laboratory Results Hemoglobin A1c Test 04/04/17 20:30 Range/Units Estimated Average Glucose 200 mg/dl Hemoglobin A1c 8.6 H 4.5-5.6 % Lipid Panel Test 04/05/17 02:10 Range/Units Triglycerides Level 208 H 0-150 mg/dl Cholesterol Level 190 0-200 mg/dl HDL Cholesterol 34 mg/dl Cholesterol/HDL Ratio 5.6 LDL Cholesterol, Calculated 114 mg/dl Medical Emergencies . Who to Call and When: Medical Emergencies: If at any time you feel your situation is an emergency, please call 911 immediately. . Non-Emergent Contact Non-Emergency issues call your: Primary Care Provider, Hospital Doctor, Surgeon (Orthopedic surgeon) . . "Provider Documentation" section prepared by Epifanio Wilks. . VTE Core Measure Inpt VTE Proph given/why not?: Enoxaparin (Lovenox) [place] Drug Monitoring Program Search Results: patient reviewed within database, no issues identified
[2017-04-06 17:53] VITALS: BP 163/79; PULSE 52; TEMP 36.6; O2SAT 96
--- NOTE | 2017-04-06 19:34 | Progress Note ---
Medicine Progress Note Date & Time of Visit: Apr 06, 2017 at 19:34 . Subjective Neck pain persists, but relieved for a while by hydrocodone / acetaminophen. No anginal symptoms. . Objective Last 8 Hrs Date Time Temp Pulse Resp B/P (MAP) Pulse Ox O2 Delivery O2 Flow Rate FiO2 04/06/17 17:53 36.6 52 18 96 Room Air 04/06/17 16:00 96 Room Air 04/06/17 15:21 36.6 52 18 163/79 (107) 95 Room Air Physical Exam: General- no distress Neck- cervical collar applied Lungs- clear to auscultation; no respiratory distress Cardiovascular- RRR; no murmur or gallop appreciated; no JVD; no pretibial edema Abdomen- + bowel sounds, soft, nontender Extremities- no cyanosis; no calf tenderness Neuro- alert, oriented Skin- warm & dry . Laboratory Results: Last 24 Hours Test 04/05/17 20:27 04/06/17 08:25 Bedside Glucose 147 mg/dl White Blood Count 7.51 K/uL Red Blood Count 5.10 M/uL Hemoglobin 16.4 g/dL Hematocrit 45.3 % Mean Corpuscular Volume 88.8 fL Mean Corpuscular Hemoglobin 32.2 pg Mean Corpuscular Hemoglobin Concent 36.2 g/dl Platelet Count 118 K/uL Mean Platelet Volume 11.6 fL Neutrophils (%) (Auto) 55.8 % Lymphocytes (%) (Auto) 27.8 % Monocytes (%) (Auto) 9.7 % Eosinophils (%) (Auto) 6.0 % Basophils (%) (Auto) 0.4 % Neutrophils # (Auto) 4.19 K/uL Lymphocytes # (Auto) 2.09 K/uL Monocytes # (Auto) 0.73 K/uL Eosinophils # (Auto) 0.45 K/uL Basophils # (Auto) 0.03 K/uL RDW Standard Deviation 39.7 fL RDW Coefficient of Variation 12.4 % Immature Granulocyte % (Auto) 0.3 % Immature Granulocyte # (Auto) 0.02 K/uL Assessment & Plan RIGHT ARM / NECK PAIN Ortho Spine consulted. Plain films of cervical spine demonstrated straightening of cervical spine, otherwise unremarkable. MRI cervical spine demonstrated right posterior disc herniation C6-7. Cervical collar applied by Ortho. Experiencing severe pain, not relieved by NSAID's. Discharge on hydrocodone 5 / acetaminophen 300 1-2 tabs q 6 hrs PRN # 60. Further management per Ortho. ELEVATED TROPONIN Second troponin at 20:38 last evening was slightly elevated at 0.120 (POC testing). Previous and subsequent troponins negative x 3. Right arm / neck pain at time of presentation musculoskeletal as described above. Cardiology consulted. Echo did not show any wall motion abnormalities. No evidence of ACS. Ongoing risk factor modification. HYPERTENSION Continue amlodipine, metoprolol, chlorthalidone. CEREBROVASCULAR DISEASE Continue aspirin. DM TYPE 2 Lantus / NovoLog per hospital stay. VTE PROPHYLAXIS SQ enoxaparin. Ambulate. DISPOSITION Discharge to home. Internal Medicine follow-up with Dr. Maldonado. Nephrology follow-up with Dr. Owens. Ortho follow-up with Dr. Reyna. .
--- NOTE | 2017-04-06 19:35 | Discharge Summary ---
Discharge Summary Date of Service Apr 06, 2017. Discharge Summary Admission Date: Apr 04, 2017 at 21:29 Discharge Date: Apr 06, 2017 Discharge Disposition: Home Principal Diagnosis: severe neck pain due to cervical radiculopathy right C6-7 OTHER ACUTE DIAGNOSES: slightly elevated troponin - no evidence of acute coronary syndrome . Secondary Diagnoses/Problems: Medical Problems: (1) Benign hypertension Status: Chronic (2) CVA, history of Status: Chronic (3) Diabetes type 2 Status: Chronic . Procedures: MRI cervical spine . Consultations: Cardiology with Dr. Goel Ortho Spine with Dr. Reyna . Medication Reconciliation New Medications: Hydrocodon/Acetaminophen 5MG/300MG (Vicodin (5MG/300MG)) 1 Tab Tab 0 PO UD PRN for Pain, #60 TAB Take 2 pills every 6 hours as needed for severe pain. Take 1 pill every 6 hours as needed for moderate pain. Continued Medications: Acetaminophen (Tylenol) 500 Mg Tab 1000 MG PO Q6 PRN for Headache or Pain, TAB Albuterol Hfa (Ventolin Hfa) 200 Puffs/93051 Mcg Aers 2 PUFFS INH QID PRN for SOB/Wheezing, #1 INHALER Amlodipine (Norvasc) 10 Mg Tab 10 MG PO DAILY, TAB Aspirin (Aspirin Ec) 81 Mg Tab 81 MG PO DAILY Atorvastatin (Lipitor) 10 Mg Tab 10 MG PO DAILY, TAB Azelastine Hcl (Astelin Nasal [place]) 200 Sprays/30 Ml [place] 1 SPRAYS NA BID PRN for Nasal Congestion, BTL Chlorthalidone (Hygroton) 25 Mg Tab 25 MG PO DAILY, TAB Citalopram Hydrobromide (Celexa) 20 Mg Tab 20 MG PO DAILY, TAB Insulin Glargine (Lantus) 100 Unit/Ml Inj 24 UNIT SC QPM, VIAL Metoprolol Succ (Toprol Xl) (Toprol-Xl) 25 Mg Tabcr 25 MG PO DAILY, #30 TAB Spironolactone (Aldactone) 25 Mg Tab 25 MG PO DAILY, TAB Tramadol (Ultram) 50 Mg Tab 50 MG PO TODAY PRN for Pain, TAB Triamcinolone Acetonide (Nasal (Nasacort Allergy 24Hr) 55 Mcg/Act Spr 2 SPRAYS ANA DAILY [[place]lin Extract] () 500 MG PO BID Admission Information HPI (per Admitting provider): History obtained from the patient, family, and records. Medical history significant for CVA, hypertension, hyperlipidemia, past tobacco abuse, DM2, insulin requiring, mood disorder. Chronic bradycardia as per records. Recent confinement 2010 for an ischemic CVA. Patient was moving furniture today when her subsequently noted achy right shoulder pain, neck pain going down to right arm. No headache, no numbness, no recollection of trauma except exertion. No actual chest pain, shortness of breath, or diaphoreses. No previous episodes. R shoulder, RUE pain worse with movement as per patient account. Patient brought to the Emergency Room. Patient given Morphine, Toradol, Valium. POC troponin noted to be abnormal. Aspirin, IV heparin started for possible ACS. Patient currently comfortable. Usual home SBP 140 to 180s as per patient. Compliant with medications. . Physical Exam (per Admitting): VITAL SIGNS: Blood pressure was noted to be 187/91 later 140/80 pulse rate 60, later 52; RR 18, temperature 36.8, sats 98 on room air. GENERAL: Noted to be obese, slightly anxious, no respiratory distress. SKIN: Normal color. Warm. HEENT: Alopecia. [place] palpebral conjunctivae. No ptosis. Dry buccal mucosa. NECK: Short neck, no tenderness, good ROM. CHEST: Clear to auscultation. No tenderness HEART: bradycardic, systolic murmur. ABDOMEN: Soft, nontender. EXTREMITIES: No tenderness in right shoulder, good shoulder ROM. NEUROLOGIC: Coherent, No gross focality. . Hospital Course RIGHT ARM / NECK PAIN Ortho Spine consulted. Plain films of cervical spine demonstrated straightening of cervical spine, otherwise unremarkable. MRI cervical spine demonstrated right posterior disc herniation C6-7. Cervical collar applied by Ortho. Experiencing severe pain, not relieved by NSAID's. Discharge on hydrocodone 5 / acetaminophen 300 1-2 tabs q 6 hrs PRN # 60. Further management per Ortho. ELEVATED TROPONIN Second troponin at 20:38 last evening was slightly elevated at 0.120 (POC testing). Previous and subsequent troponins negative x 3. Right arm / neck pain at time of presentation musculoskeletal as described above. Cardiology consulted. Echo did not show any wall motion abnormalities. No evidence of ACS. Ongoing risk factor modification. HYPERTENSION Continue amlodipine, metoprolol, chlorthalidone. CEREBROVASCULAR DISEASE Continue aspirin. DM TYPE 2 Lantus / NovoLog per hospital stay. VTE PROPHYLAXIS SQ enoxaparin. Ambulate. DISPOSITION Discharge to home. Internal Medicine follow-up with Dr. Maldonado. Nephrology follow-up with Dr. Owens. Ortho follow-up with Dr. Reyna. . Discharge Instructions Date of Service Apr 06, 2017. Admission Reason for Admission: severe neck pain . Discharge Discharge Diagnosis / Problem: severe neck pain from herniated disc Discharge Goals Goal(s): Decrease discomfort, Improve function Activity Recommendations Activity Limitations: as noted below Lifting Limitations: no more than 5 pounds . Instructions / Follow-Up Instructions / Follow-Up APPOINTMENTS: ORTHOPEDICS Dr. Reyna Please call him for appointment. OTHER INSTRUCTIONS: Seek medical attention if you have: * temperature above 101 * chest pain or trouble breathing * abdominal pain, nausea, vomiting * diarrhea, dark stools or bloody stools * any unanswered questions or concerns Call 911 if symptoms are severe. Call if you have any questions or problems. My cell # is [phone]. You can also reach a [facility] hospitalist on duty at [facility] 24 hours a day by calling [phone]. Please take good care of yourself. Epifanio Wilks . Current Hospital Diet Patient's current hospital diet: Diabetes Type 2 Diet, AHA Diet (Heart Healthy) Discharge Diet Recommended Diet: AHA Diet (Heart Healthy), Diabetes Type 2 Diet Procedures Procedures Performed: CT neck MRI neck echocardiogram Pending Studies Studies pending at discharge: no Laboratory Results Hemoglobin A1c Test 04/04/17 20:30 Range/Units Estimated Average Glucose 200 mg/dl Hemoglobin A1c 8.6 H 4.5-5.6 % Lipid Panel Test 04/05/17 02:10 Range/Units Triglycerides Level 208 H 0-150 mg/dl Cholesterol Level 190 0-200 mg/dl HDL Cholesterol 34 mg/dl Cholesterol/HDL Ratio 5.6 LDL Cholesterol, Calculated 114 mg/dl Medical Emergencies . Who to Call and When: Medical Emergencies: If at any time you feel your situation is an emergency, please call 911 immediately. . Non-Emergent Contact Non-Emergency issues call your: Primary Care Provider, Hospital Doctor, Surgeon (Orthopedic surgeon) . . "Provider Documentation" section prepared by Epifanio Wilks. . VTE Core Measure Inpt VTE Proph given/why not?: Enoxaparin (Lovenox)SQ [place] Drug Monitoring Program Search Results: patient reviewed within database, no issues identified . Additional Copies To Andres Owens M.D.; Santy Driscoll M.D.; Epifanio Reyna, DO
[2017-04-09] MEDS ORDERED: METH4PAK PO (10:58)
== END 2017-04-06 17:58 | disposition home or self-care (01) ==
LOC: C.EDB 18:35 → C.2T 21:29 → ENRESERV 21:33 → C.MS2W 04-05 20:27
PROVIDERS: ADMIT Hospitalist; ATTEND Hospitalist
DX: M50.223 Other cervical disc displacement at C6-C7 level (principal); M54.12 Radiculopathy, cervical region; I10 Essential (primary) hypertension; Z86.73 Personal history of transient ischemic attack (TIA), and cerebral infarction without residual deficits; E11.9 Type 2 diabetes mellitus without complications; Z79.82 Long term (current) use of aspirin; Z87.891 Personal history of nicotine dependence; Z79.4 Long term (current) use of insulin; E78.5 Hyperlipidemia, unspecified; Z82.49 Family history of ischemic heart disease and other diseases of the circulatory system; Z80.2 Family history of malignant neoplasm of other respiratory and intrathoracic organs

== ENCOUNTER 2017-05-03 05:16 | Observation (INO) | payer OTHER ==
[2017-04-26 08:36] VITALS: BMI 34.0
--- NOTE | 2017-05-02 19:10 | HISTORY & PHYSICAL EXAMINATION ---
DATE OF ADMISSION: 05/03/2017 CHIEF COMPLAINT: Neck and arm pain and weakness. HISTORY OF PRESENT ILLNESS: He is doing poorly, increasing pain, increasing weakness. He has a true progressive neurological deficit, worsening with conservative measures. PAST MEDICAL HISTORY: Neck issues, no kidney stones, renal issues, carcinoma and liver issues. MEDICATIONS: Norvasc, Celexa, baby aspirin and Lantus. PAST SURGICAL HISTORY: Arthroscopic knee surgery. SOCIAL HISTORY: No alcohol, tobacco or drug issues. REVIEW OF SYSTEMS: Denies any blurred vision, double vision, tinnitus, vertigo. Does have cervical headaches. Denies chest pain, palpitations. No asthma, wheezing, shortness of breath. No nausea, vomiting, diarrhea or constipation. No urgency, frequency, dysuria. Major complaint is upper extremity musculoskeletal complaints of progressive weakness. PHYSICAL EXAMINATION: VITAL SIGNS: Blood pressure 120/80, pulse 80, respirations 16. HEENT: Pupils react to light and accommodation. Ear, nose and throat clear. CARDIAC: Normal S1, S2, no S3. LUNGS: Clear to auscultation. No rales, rhonchi or wheezing. ABDOMEN: Soft, nontender, bowel sounds present. MUSCULOSKELETAL: He has a positive Spurling maneuver, positive Lhermitte sign. He has weakness of triceps function, weakness of eligibility manager strength, weakness of reflex. DIAGNOSTIC STUDIES: Images demonstrated disk herniation, cervical spine C6-C7. PLAN: Includes an ACDF cervical spine with iliac crest bone graft.
[2017-05-03] VITALS (17 sets, daily range): BP systolic 152–182; BP diastolic 72–95; PULSE 50–88; TEMP 36.3–36.8; O2SAT 94–99; BMI 34.0
[~2017-05-03] VITALS: Ht 177.8 cm; Wt 106.8 kg
[~2017-05-03 05:16] MED LIST changes: +ACET-1256 PO; -AMLO-110 PO; +AMLO-114 PO; +ASTN; -CAND1TAB17 PO; +CHERRY EXTRACT PO; +CITA20TA9 PO; +EMPA1TAB PO; +GLC/500 PO; +HYDR-3419 PO; +HYG/25 PO; +INSDGI SC; -POTA20TA16 PO; +SPIR25TA PO; -TORS20TA2 PO; +TRIA1SPR4 NAE
[2017-05-03] MEDS ORDERED: CEFAZOLIN 2000MG IV PUSH 15 ML IV SCH (06:00)
[2017-05-03] MEDS ORDERED: NSS 1000ML IV SCH (06:00)
[2017-05-03] MEDS: LACTATED RINGER'S 1000ML 1,000 ML IV SCH ×2 (06:15→06:29)
[2017-05-03] MEDS ORDERED: THROMBIN FOR SOLN 20000 UNIT KIT ONE (06:52)
[2017-05-03] MEDS ORDERED: BUPIVACAINE/EPINEPHRINE 0.5% MPF 1:200,000 30 ML VIAL ONE ×2 (06:52→07:20)
[2017-05-03] MEDS ORDERED: BACITRACIN 50000 UNIT VIAL ONE (06:52)
[2017-05-03] MEDS ORDERED: MIDAZOLAM HCL 1 MG/ML 2ML VIAL ONE (07:08)
[2017-05-03] MEDS ORDERED: PROPOFOL IV EMULSION 10 MG/ML 20 ML VIAL IV ONE (07:09)
[2017-05-03] MEDS ORDERED: FENTANYL CITRATE INJ 50 MCG/1 ML 2 ML VIAL ONE ×2 (07:09→08:23)
[2017-05-03] MEDS ORDERED: NEOSTIGMINE METHYLSULFATE 5 MG/5 ML SYR ONE (07:09)
[2017-05-03] MEDS ORDERED: ROCURONIUM BROMIDE 10 MG/ML 5 ML VIAL IV ONE ×2 (07:09→08:39)
[2017-05-03] MEDS ORDERED: ONDANSETRON INJ 2 MG/ML 2 ML VIAL ONE (07:09)
[2017-05-03] MEDS ORDERED: LIDOCAINE HCL 2% 2 ML VIAL (20MG/ML) ONE (07:09)
[2017-05-03] MEDS ORDERED: GLYCOPYRROLATE INJ 0.2 MG/ML VIAL ONE (07:10)
--- NOTE | 2017-05-03 07:29 | History & Physical Bridge Note ---
H&P Re-Evaluation Bridge Note: I have examined the patient, reviewed the History & Physical and in the interval since the performance of the History & Physical I have noted the following changes of clinical significance: No changes noted
[2017-05-03] MEDS ORDERED: GELATIN SPONGE SZ 100 ONE (08:18)
[2017-05-03] MEDS ORDERED: DEXAMETHASONE SOD INJ 4 MG/ML VIAL ONE (08:44)
[2017-05-03] MEDS ORDERED: HYDROmorphone INJ 1 MG/ML SYR IV PRN ×2 (09:30→12:15)
[2017-05-03] MEDS ORDERED: ONDANSETRON INJ 2 MG/ML 2 ML VIAL IV PRN (09:30)
[2017-05-03] MEDS ORDERED: ATROPINE SULFATE 0.1 MG/ML 5ML SYR IV PRN (09:30)
[2017-05-03] MEDS ORDERED: EpHEDrine SULFATE INJ 50 MG/ML AMP IV PRN (09:30)
[2017-05-03] MEDS ORDERED: MEPERIDINE HCL 25 MG/ML CARP IV PRN (09:30)
[2017-05-03] MEDS ORDERED: FENTANYL CITRATE INJ 50 MCG/1 ML 2 ML VIAL IV PRN (09:30)
--- NOTE | 2017-05-03 09:39 | [facility] Post Operative Brief Note ---
Immediate Operative Summary Operative Date May 03, 2017. Pre-Operative Diagnosis Disk herniation, cervical spine C6-C7 Post-Operative Diagnosis Same as preop Procedure(s) Performed C6-C7 Anterior Cervical Discectomy and Fusion with Iliac Crest Bone Graft Surgeon Dr. Reyna Vocational Ed Instructor Surgeon(s) Rolando Santacruz PA-C Estimated Blood Loss 30 cc Findings Consistent with Post-Op Diagnosis Specimens none, as per surgeon Anesthesia Type General Complication(s) none Disposition Disposition: Recovery Room / PACU
--- NOTE | 2017-05-03 09:47 | DIAGNOSTIC IMAGING REPORT ---
INTRAOPERATIVE RADIOGRAPHS CLINICAL HISTORY: C6-C7 spinal fusion. Fluoroscopy time: 9 seconds. FINDINGS: 3 spot fluoroscopic views of the cervical spine are presented. An endotracheal tube is in place. There are changes from anterior fusion at C6-C7. Orthopedic hardware appears intact. IMPRESSION: Intraoperative images from C6 -C7 spinal fusion as above. Electronically signed by: Alban Phillips M.D. 05/03/2017 9:46 AM Dictated Date/Time: 05/03/2017 9:45 AM
[2017-05-03] MEDS ORDERED: OXYCODONE/ACETAMINOPHEN 5-325 TAB PO PRN (10:00)
[2017-05-03] MEDS ORDERED: DEXAMETHASONE INJ 8 MG in SYRINGE 0 ML IV PRN (10:00)
[2017-05-03] MEDS ORDERED: CEFAZOLIN IV 1,000 MG in DEXTROSE 5% 50ML 50 ML IV SCH (10:00)
[2017-05-03] MEDS ORDERED: ACETAMINOPHEN IV 100 ML IV PRN (10:00)
[2017-05-03] MEDS ORDERED: MAGNESIUM HYDROXIDE SUSP 30 ML UDC PO PRN (10:00)
[2017-05-03] MEDS ORDERED: ACETAMINOPHEN 500 MG TAB PO PRN (10:00)
[2017-05-03] MEDS ORDERED: TRIAMCINOLONE ACET NASAL SPRAY 10.8ML BTL NAE PRN (10:00)
[2017-05-03] MEDS ORDERED: LORAZEPAM INJ 0.5 MG in SYRINGE 0.75 ML IV PRN (10:00)
[2017-05-03] MEDS ORDERED: HYDROmorphone INJ 0.5 MG/0.5 ML SYR IV PRN (10:00)
[2017-05-03] MEDS ORDERED: NON-FORMULARY MEDICATION (Empagliflozin (Jardiance) 1 TAB) PO SCH (10:00)
[2017-05-03] MEDS ORDERED: NALOXONE HCL 0.4 MG/1 ML VIAL/CARP IV PRN (10:00)
[2017-05-03] MEDS ORDERED: RACEPINEPHRINE 2.25% NEBU SOLN 0.5 ML VIAL INH PRN (10:00)
--- NOTE | 2017-05-03 10:20 | OPERATIVE REPORT ---
DATE OF OPERATION: 05/03/2017 PREOPERATIVE DIAGNOSIS: Cervical disc herniation with cervical radiculopathy, cervical spine C6-C7. POSTOPERATIVE DIAGNOSIS: Same. PROCEDURE: Include an anterior cervical discectomy and fusion, C6-C7 cervical spine. Structural autograft from the left iliac crest. SURGEON: Dr. Epifanio Reyna. FRY COOK: Mack Santacruz PA-C. DESCRIPTION OF PROCEDURE: The patient was taken to the operating room, a general intubated anesthetic provided to the patient, scrubbed, prepped and draped sterile. We made a transverse skin incision over C6-C7 interval dissecting the soft tissue. Because of its size, we could not quite see down as far as C6-C7. I was able to put a marker at C5-C6, dropped down 1.5 cm to the disc below. We put in deep self-retaining retractors. We had no bleeding on the dissection. We then were able do a complete discectomy at C6-C7 to the uncovertebral joints bilaterally. I could see perfectly disc was retrieved over the right hand side in piecemeal fashion. I completed the foraminotomy and took off some osteophyte and was pleased with the overall decompression and the visibility of the interspace after the decompression completed. I went to the left iliac crest, made a skin incision, fascial incision, harvested a structural autograft about 7.5 mm in height, 15 mm in length and approximately 13 mm left to right. This was placed into the discectomy site at C6-C7. The fit was anatomic. We put an 18-mm plate over the construct from the LINAGORA, fastened this with cortex screws North-South. The fit was anatomic. We irrigated thoroughly. We put a drain in the cervical spine. We closed that in a layered fashion. We closed the iliac crest. We irrigated and closed in a stepwise fashion as well. Sterile dressings applied. Sponge and needle count correct at the close of the procedure. Implants used by the LINAGORA. There were no apparent complications. I attest to the content of the Intraoperative Record and any orders documented therein. Any exception s are noted below.
[2017-05-03] MEDS: LABETALOL HCL IV 5 MG/ML 20ML IV PRN ×3 (10:26→10:36)
[2017-05-03] MEDS ORDERED: PHARMACY GLYCEMIC MGMT CONSULT PRN (10:42)
--- NOTE | 2017-05-03 10:45 | Anesthesiology Progress Note ---
Anesthesia Post Op Note Date & Time May 03, 2017 at 10:45 Vital Signs Pain Intensity: 0 Vital Signs Past 12 Hours Date Time Temp Pulse Resp B/P (MAP) Pulse Ox O2 Delivery O2 Flow Rate FiO2 05/03/17 10:40 62 17 191/90 99 Nasal Cannula 4 05/03/17 10:30 61 10 206/94 94 Nasal Cannula 4 05/03/17 10:20 62 17 212/90 99 Oxymask 10 05/03/17 10:10 65 13 196/88 96 Oxymask 10 05/03/17 10:00 36.0 61 19 181/89 97 Oxymask 10 05/03/17 05:55 36.5 50 20 169/85 97 Room Air Notes Mental Status: alert / awake / arousable, participated in evaluation Pt Amnestic to Procedure: Yes Nausea / Vomiting: adequately controlled Pain: adequately controlled Airway Patency, RR, SpO2: stable & adequate BP & HR: stable & adequate Hydration State: stable & adequate Anesthetic Complications: no major complications apparent
[2017-05-03] MEDS ORDERED: INSULIN GLARGINE SOLOSTAR 100 UNITS/ML 3 ML PEN SC ONE ×2 (12:00→18:00)
--- NOTE | 2017-05-03 13:46 | Pharmacy Progress Note ---
Pharmacy Glycemic Short Note 2 Date of Service May 03, 2017. OUTPATIENT ANTIDIABETIC REGIMEN: * Lantus 24 units SQ qAM (last dose: 05/02 am) * Metformin 1,000mg PO BID * HbA1c: 8.6% (04/04/17) ASSESSMENT: * Mr Case is a 67yo diabetic male, POD #0 s/p cervical discectomy and fusion. * Patient was given a dose of DXM pre-op and BSGs have been high so far today ( 206, 196). * Patient remains NPO until evaluated on Med/Surg floor post-op. PLAN FOR INPATIENT GLYCEMIC CONTROL: * Hold outpatient oral diabetes medications * Basal insulin * Lantus 40 units SQ x1 * Lantus SQ HS x1 dose this evening based on BSGs: -- give 0 units for BSG less than 120mg/dL -- give 10 units for BSG 120-180mg/dL -- give 15 units for BSG greater than 180mg/dL * Will re-evaluate Lantus dosing tomorrow am * Bolus insulin * NovoLog per scale ACHS or Q6hrs while NPO * Goal Range: Low 120 mg/dL - High 150 mg/dL * Correction Factor: 20 mg/dL/unit * Nutritional / Prandial insulin per carb ratio of 1 unit per 7 grams CHO consumed PLAN FOR DISCHARGE: * Current A1c (8.6%) indicates that patient's glycemic control is sub-optimal. Goal A1c closer to 6.5-7% for 67yo patient. * May consider adjustments to outpatient regimen on discharge. * Would recommend f/u with PCP soon after discharge to work toward optimizing A1c.
[2017-05-03] MEDS ORDERED: IV FLUIDS COMPLETED PRN (14:15)
[2017-05-03] MEDS: INSULIN ASPART 100 UNITS/ML 3 ML PEN SC SCH ×3 (14:47→22:09)
[2017-05-03] MEDS: CHLORTHALIDONE 25 MG TAB PO SCH (15:20)
[2017-05-03] MEDS: SPIRONOLACTONE 25 MG TAB PO SCH (15:21)
[2017-05-03] MEDS: AMLODIPINE BESYLATE 5 MG TAB PO SCH (15:21)
[2017-05-03] MEDS: CEFAZOLIN IV 1,000 MG in SYRINGE 0 ML IV SCH ×2 (15:44→23:47)
[2017-05-03] MEDS: SODIUM CHLORIDE 0.9% 1000ML 1,000 ML IV SCH (18:26)
[2017-05-03] MEDS ORDERED: METFORMIN HCL 500 MG TAB PO SCH (21:00)
[2017-05-03] MEDS ORDERED: INSULIN HUMAN REGULAR PER UNIT 5 UNITS in SYRINGE 4.95 ML IV SCH (21:45)
[2017-05-03] MEDS: DOCUSATE SODIUM 100 MG CAP PO SCH (22:03)
[2017-05-04] VITALS (8 sets, daily range): BP systolic 152–165; BP diastolic 80–92; PULSE 68–88; TEMP 36.7–37.1; O2SAT 94–96; Ht 177.8 cm; Wt 106.8 kg
[2017-05-04] MEDS ORDERED: INSULIN ASPART 100 UNITS/ML 3 ML PEN SC SCH (02:00)
[2017-05-04] MEDS: SODIUM CHLORIDE 0.9% 1000ML 1,000 ML IV SCH (05:42)
--- NOTE | 2017-05-04 08:05 | Discharge Instructions ---
Discharge Instructions Date of Service May 04, 2017. Admission Reason for Admission: Lumbar Disc Herniation C6-C7 Discharge Discharge Diagnosis / Problem: same Discharge Goals Goal(s): Improve function Activity Recommendations Activity Limitations: as noted below Lifting Limitations: gradually increase as tolerated Exercise/Sports Limitations: until after follow-up appointment Shower/Bathe: keep incision dry . Instructions / Follow-Up Instructions / Follow-Up MEDICATIONS: Please take your prescriptions as instructed at your pre-op appointment. SPECIAL CARE: The following information is intended to answer some of the common questions and concerns regarding your surgery. Each patient is an individual and receives individual counselling throughout the course of treatment, from diagnosis to surgery all the way through recovery. What follows is not an exhaustive list, but should be a useful guide to some of the common questions and concerns patients have regarding their surgeries. These are not provided to keep you from calling us; rather, they give you something accurate and concrete to reference as you recover from your procedure. If you need us, we are available to you. As always, if you are not sure about something, call us at [phone]. MEDICAL EMERGENCIES: For these conditions, call 911 or go to your local hospital-based Emergency Department - not [facility] or equivalent. * Paralysis * Severe chest pain or difficulty breathing * Swelling or redness of either leg Spine procedures can be rather complex and though complications are rare, they do occur. In such cases, effective advice regarding emergency situations cannot always be addressed over the telephone. You may be referred to the emergency department for more effective management of your problem. Activity Limitations: It is important to give your body time to heal, so please limit your activities : * In general, don't do anything that moves your spine too much. You should avoid contact sports, twisting or heavy lifting while you recover. * 5-10 pounds is all you should attempt to lift. * You should not plan on driving for approximately 3 weeks and you should avoid traveling more than 30-45 minutes at a time. Longer trips should be broken down with walking breaks spaced appropriately. * Physical therapy is not usually required. * Walking and good posture practices will help you recover and regain your function. * Avoid straining or sudden changes in position. * In general, the goal is to take it easy and recover. Don't cause any new problems. Just relax. Showers: * Do not take a bath, use a Jacuzzi or hot tub or otherwise submerge your incision. * It is usually safe to take a shower 4-5 days after your surgery. * Your incision does not require any special creams or ointments. * Simply clean it with soap and water, dry and re-dress with a clean bandage afterwards. Incision: * Keep incision clean, dry and protected until your first follow-up appointment. * Some amount of drainage and redness is normal. Any drainage should be fairly clear and not have a foul odor. * If you feel anything is wrong or you have excessive drainage, please call us. * Your stitches and eliza will be removed 10-14 days after your surgery. At the time of your first post-op visit. * Neck surgeries are typically closed with a suture underneath the skin. The steri-strips over the incision should be maintained until we see you in the office. Bracing: * You may be provided with a back or neck brace to encourage good posture and prevent injury. It will remind you not to do too much as you heal and will alert others to the fact that you have had a surgery. * Back braces may be removed for showers and when you are resting at home. They must be worn when you are walking around for any period of time or for travel. * For neck surgery, you will likely be provided with two cervical collars. The soft collar ([place] or foam rubber) is worn most commonly throughout the day and while sleeping. The plastic collar (provided at the hospital) is for showering/bathing. * Except while eating, collars should remain in place. More specifically, bracing is provided for a purpose and should be worn. * Please obtain your brace or collars prior to your operation and bring them to the hospital with you on the day of surgery. * You should also bring your collars to your post-op appointment with Dr. Reyna. You should always take good care of your body and practice healthy habits, especially following surgery. You should: * Follow your doctor's treatment plan * Sit and stand properly with good posture (ears over shoulders, shoulders over hips) Don't slouch * Learn to lift correctly * Exercise regularly (low-impact aerobic exercise is especially good, but check with your doctor first) * Generally, be up and walking for 5-10 minutes at a time at least 3-4 times per day from the day you get home * Increasing walking to tolerance until you can walk for 20-30 minutes at a time * Attain and maintain a healthy body weight * Eat healthy foods ( a well-balanced, low-fat diet rich in fruits and vegetables) and get enough calcium * Avoid excessive use of alcohol When to call our office - If you notice any of the following: * Increased pain not relieve by pain medicine * Fevers greater then 100 degrees F, chills or flu symptoms * Increased redness around incision * Drainage from the incision that is not clear * Any foul smelling drainage * Swelling or fluid collection beneath the skin Miscellaneous: * In the hospital, you may be given a walker or cane for support while walking. These are temporary needs and are intended to prevent injuries due to falls. You may discontinue them when you feel strong and steady enough on your feet. * Sleep in a comfortable position. We find that many patients find a lounge chair or recliner with several pillows to be beneficial in the early post-operative period. * The support stockings should be used for 7-10 days and may be discontinued when you are back to walking more and conducting usual household activities. No problem is insignificant. We are here to help you and get you well. Contact us at [phone]. Definitions: Foraminotomy: If part of the disc or a bone spur (osteophyte) is pressing on a nerve as it leaves the vertebra (through an exit called the foramen), a foraminotomy may be done. Otomy means "to make an opening." A foraminotomy is making the opening of the foramen larger, so the nerve can exit without being compressed. Laminotomy: Similar to the foraminotomy, a laminotomy makes a larger opening, this time in your bony plate protecting your spinal canal and spinal cord (the lamina). The lamina may be pressing on your nerve, so the surgeon may make more room for the nerves using a laminotomy. Laminectomy: Sometimes, a laminotomy is not sufficient. The surgeon may need to remove all or part of the lamina. This procedure is called a laminectomy. This can often be done at many levels without any harmful effects. Current Hospital Diet Patient's current hospital diet: Diabetes Type 2 Diet, Full Liquid Diet Discharge Diet Recommended Diet: Diabetes Type 2 Diet Procedures Procedures Performed: C6-C7 Anterior Cervical Discectomy and Fusion with Iliac Crest Bone Graft Pending Studies Studies pending at discharge: no Laboratory Results Hemoglobin A1c Test 04/04/17 20:30 Range/Units Estimated Average Glucose 200 mg/dl Hemoglobin A1c 8.6 H 4.5-5.6 % Lipid Panel Test 04/05/17 02:10 Range/Units Triglycerides Level 208 H 0-150 mg/dl Cholesterol Level 190 0-200 mg/dl HDL Cholesterol 34 mg/dl Cholesterol/HDL Ratio 5.6 LDL Cholesterol, Calculated 114 mg/dl Medical Emergencies . Who to Call and When: Medical Emergencies: If at any time you feel your situation is an emergency, please call 911 immediately. . Non-Emergent Contact Non-Emergency issues call your: Primary Care Provider . "Provider Documentation" section prepared by Epifanio Reyna. . VTE Core Measure Inpt VTE Proph given/why not?: Treatment not indicated
[2017-05-04] MEDS: CEFAZOLIN IV 1,000 MG in SYRINGE 0 ML IV SCH (08:33)
[2017-05-04] MEDS: DOCUSATE SODIUM 100 MG CAP PO SCH (08:38)
[2017-05-04] MEDS ORDERED: INSULIN GLARGINE SOLOSTAR 100 UNITS/ML 3 ML PEN SC ONE (09:00)
[2017-05-04] MEDS ORDERED: ASPIRIN 81 MG ECTAB PO SCH (09:00)
[2017-05-04] MEDS ORDERED: CITALOPRAM 20 MG TAB PO SCH (09:00)
[2017-05-04] MEDS: CHLORTHALIDONE 25 MG TAB PO SCH (09:08)
[2017-05-04] MEDS: SPIRONOLACTONE 25 MG TAB PO SCH (09:08)
[2017-05-04] MEDS: AMLODIPINE BESYLATE 5 MG TAB PO SCH (09:09)
[2017-05-04] MEDS: INSULIN ASPART 100 UNITS/ML 3 ML PEN SC SCH (09:13)
[2017-05-05] MEDS ORDERED: BISACODYL 5 MG TABEC PO PRN (06:00)
[2017-05-05] MEDS ORDERED: BISACODYL 10 MG SUPP PR PRN (06:00)
--- NOTE | 2017-05-05 08:29 | DISCHARGE SUMMARY ---
Alert, oriented. Minimal complaints of pain. Vital signs stable. No chest pain, shortness of breath, confusion. Afebrile. Wound is clean. ASSESSMENT: Status post anterior cervical discectomy and fusion, doing well in the very short run. DISPOSITION: We will discharge him home later today. Instructions, precautions provided. We will see him back in the office in 10 days. He has medication at home for pain.
== END 2017-05-04 10:16 | disposition home or self-care (01) ==
LOC: C.ACU 05:16 → C.3E 07:15 → ENRESERV 10:54
PROVIDERS: ADMIT Orthopaedic Surgery Orthopaedic Surgery of the Spine; ATTEND Orthopaedic Surgery Orthopaedic Surgery of the Spine
DX: M50.223 Other cervical disc displacement at C6-C7 level (principal); M54.12 Radiculopathy, cervical region; E11.9 Type 2 diabetes mellitus without complications; I10 Essential (primary) hypertension; Z86.73 Personal history of transient ischemic attack (TIA), and cerebral infarction without residual deficits; Z79.82 Long term (current) use of aspirin; Z79.4 Long term (current) use of insulin

== ENCOUNTER → 2017-07-19 | Outpatient (CLI) | payer OTHER ==
[2017-07-19 09:33] LABS: HEMATOCRIT 45.3 % (42-52); HEMOGLOBIN 16.3 g/dL (14.0-18.0); MEAN CELL VOLUME 89.5 fL (80-100); MEAN CORPUSCULAR HEMOGLOBIN 32.2 pg (25-34); MEAN PLATELET VOLUME 11.7 fL (7.4-10.4); PLATELET COUNT 156 K/uL (130-400); RED CELL DISTRIBUTION WIDTH CV 12.3 % (11.5-14.5); RED CELL DISTRIBUTION WIDTH SD 39.9 fL (36.4-46.3); WHITE BLOOD COUNT 8.01 K/uL (4.8-10.8)
[2017-07-19 10:04] LABS: ALBUMIN 3.9 gm/dl (3.4-5.0); ALT/SGPT 60 U/L (12-78); AST/SGOT 44 U/L (15-37); BLOOD UREA NITROGEN 26 mg/dl (7-18); CARBON DIOXIDE 31 mmol/L (21-32); CREATININE 1.44 mg/dl (0.60-1.40); GLUCOSE 172 mg/dl (70-99); POTASSIUM 3.6 mmol/L (3.5-5.1); SODIUM 136 mmol/L (136-145)
[2017-07-19 10:07] LABS: ALKALINE PHOSPHATASE 90 U/L (45-117); PHOSPHORUS 3.5 mg/dl (2.5-4.9); TOTAL PROTEIN 7.9 gm/dl (6.4-8.2)
== END | disposition home or self-care (01) ==
LOC: C.LAB1850 07:56
PROVIDERS: ATTEND Internal Medicine Nephrology
DX: I10 Essential (primary) hypertension (principal); R80.9 Proteinuria, unspecified; E66.9 Obesity, unspecified; R73.02 Impaired glucose tolerance (oral)

== ENCOUNTER 2020-10-08 05:29 | Inpatient (IN) ==
--- NOTE | 2020-09-19 13:30 | Anesthesiology Consultation ---
Date of Service September 19, 2020 Assessment & Plan (1) Encounter for pre-operative examination: Chart Review Chart Review: Acceptable Risk for Surgery and Patient NOT seen in Pre Admission Testing Consults Requested none Additional Notes "HbA1C post-appointment was 10.2. Patient understands that HbA1C was elevated and this means additional risks of deep infection, wound healing and non-union potential. Given the urgent nature of this surgery, he would like to proceed with the procedure. He will continue to work on optimizing his sugar control with his PCP summer-operatively." per Dr. Monique History Surgery Operation Date: 09/23/20 07:00 Proposed Procedures p Removal of Hardware C6-C7, Anterior Cerivcal Discectomy and Fusion C5-C6, Possible C6-C7, Local Autograft, Allograft, Spinal Cord Monitoring - Deborah Monique MD Height/Weight Height: 5 ft 10 in Weight: 102.058 kg Allergies Allergy/AdvReac Type Severity Reaction Status Date / Time carvedilol Allergy Severe extreme Verified 09/19/20 08:30 fatigue.pain,difficulty walking,sensitivity to sun bee venom protein (honey bee) Allergy Intermediate sometimes Verified 09/19/20 08:30 swelling at sting site Medications Home Medications Medication Instructions Recorded Confirmed Last Taken acetaminophen [Tylenol Extra 1,000 mg PO DIRECTED PRN 01/26/18 09/19/20 Unknown Strength] aspirin [Aspir-81] 81 mg PO QAM 01/26/18 09/19/20 01/26/18 citalopram [Celexa] 20 mg PO QAM 01/26/18 09/19/20 01/26/18 insulin glargine [Lantus U-100 25 unit SUBCUT QAM 01/26/18 09/19/20 01/25/18 Insulin] atorvastatin 10 mg tablet 10 mg PO DAILY #30 tab 10/31/18 09/19/20 Unknown metoprolol succinate 25 mg 25 mg PO DAILY #30 tab 10/31/18 09/19/20 Unknown tablet,extended release 24 hr chlorthalidone 25 mg tablet 25 mg PO QAM #90 tab 03/27/19 09/19/20 Unknown eplerenone 25 mg tablet 25 mg PO DAILY #90 tab 05/13/20 09/19/20 Unknown amlodipine 10 mg tablet 10 mg PO QAM #90 tab 07/10/20 09/19/20 Unknown meloxicam 7.5 mg tablet 7.5 mg PO DAILY 14 Days #14 tab 09/12/20 09/19/20 U nknown pantoprazole 20 mg tablet,delayed 20 mg PO DAILY 14 Days #14 tab 09/12/20 09/19/20 Unknown release Past Medical History Medical History Anxiety Arthritis Chronic kidney disease, stage III (moderate) CVA (cerebral vascular accident) 2017 (NO CURRENT PROBLEMS "RECOVERED") Diabetes mellitus, type 2 Fatty liver HTN (hypertension) Hx of gout Hyperlipidemia Past Family History Family History Father Family history of diabetes mellitus Other Cancer Diabetes Hearing loss Heart disease Hypertension Lung disease No family history of adverse response to anesthesia No family history of bleeding disorder Past Surgical History Surgical History Fusion of spine CERVICAL H/O metal removed from eye History of arthroscopy LEFT KNEE X 3 RT KNEE X 1 History of colonoscopy History of tooth extraction Social History Smoking Status: Former smoker tobacco type: cigarettes and smokeless tobacco Do You Dip or Chew Tobacco: Yes (ADVISED (2 CANS PER WEEK)) Smoking End Date: 30 YEARS AGO Hx Alcohol Use: Yes alcohol intake frequency: holidays/special occasions only Hx Substance Use: No substance use type: does not use Lab Results Anesthesia Preop Results Results Anesthesia Widget: WBC 6.72 K/uL (4.8-10.8) 09/17/20 Hgb 16.7 g/dL (14.0-18.0) 09/17/20 Hct 47.0 % (42-52) 09/17/20 Plt 126 K/uL (130-400) L 09/17/20 Na 138 mmol/L (136-145) 09/17/20 K 3.1 mmol/L (3.5-5.1) L 09/17/20 Cl 104 mmol/L (98-107) 09/17/20 CO2 30 mmol/L (21-32) 09/17/20 BUN 18 mg/dl (7-18) 09/17/20 Creat 1.23 mg/dl (0.6-1.4) 09/17/20 Glucose Level 266 mg/dl (70-99) H 09/17/20 HA1c 10.2 % (4.5-5.6) H 09/17/20 SARS-CoV-2, RNA, NAAT Negative 09/17/20 Blood Type AB Positive 09/17/20 Antibody Screen NEGATIVE 09/17/20 Testing Electrocardiogram Date: 09/17/20 Normal sinus rhythm, rate [address] abnormality When compared with ECG of 05-APR-2017 06:29, No significant change was found Confirmed by Naveen Leavitt ([id number]) on 09/18/2020 6:11:25 AM
[~2020-10-08 05:29] MED LIST changes: -ACET-1256 PO; -AMLO-114 PO; -ASPI81TA28 PO; -ASTN; -CHERRY EXTRACT PO; -CITA20TA9 PO; -EMPA1TAB PO; -GLC/500 PO; -HYDR-3419 PO; -HYG/25 PO; -INSDGI SC; +LR 15ML/HR IV SCH; +LR 60ML/HR IV SCH; -SPIR25TA PO; -TRIA1SPR4 NAE; +ceFAZolin 2000MG 2,000 MG/15 ML SYR IV SCH
[2020-10-08] MEDS ORDERED: LR 60ML/HR IV SCH (06:00)
[2020-10-08] MEDS ORDERED: LR 15ML/HR IV SCH (06:00)
[2020-10-08] MEDS ORDERED: ceFAZolin 2000MG 2,000 MG/15 ML SYR IV SCH (06:00)
[2020-10-08] MEDS ORDERED: ONDANSETRON INJ 2 MG/ML 2 ML VIAL ONE (06:48)
[2020-10-08] MEDS ORDERED: PROPOFOL IV EMULSION 10 MG/ML 20 ML VIAL IV ONE (06:48)
[2020-10-08] MEDS ORDERED: SUCCINYLCHOLINE CHLORIDE 20 MG/ML 10 ML VIAL IV ONE (06:48)
[2020-10-08] MEDS ORDERED: LIDOCAINE 2% 2 ML VIAL/AMP(20MG/ML) INFIL ONE (06:48)
--- NOTE | 2020-10-08 06:48 | History & Physical Bridge Note ---
Date of Service October 08, 2020 History & Physical Bridge Note I have examined the patient, reviewed the History & Physical and in the interval since the performance of the History & Physical I have noted the following changes of clinical significance: no changes noted New changes compared to last appointment: right C6 weakness (not noted by patinet) Musculoskeletal: 5/5 motor strength bilateral C5-T1, L2-S1 except right C6 4/5, right C8 4/5, left C8 4+/5, right T1 4+/5. Neurologic: Sensation 2/2 to light touch bilateral C5-T1, L2-S1 except right index finger tip 1/2 (chronic). Patient marked for surgery. All new questions about procedure answered. Informed consent confirmed
[2020-10-08] MEDS ORDERED: MIDAZOLAM HCL 1 MG/ML 2ML VIAL ONE (06:49)
[2020-10-08] MEDS ORDERED: fentaNYL citrate 100 MCG/2 ML VIAL ONE (06:49)
[2020-10-08] MEDS ORDERED: ATROPINE SULFATE 0.1 MG/ML 10ML SYR IV PRN (06:53)
[2020-10-08] MEDS ORDERED: ONDANSETRON INJ 2 MG/ML 2 ML VIAL IV PRN ×2 (06:53→14:16)
[2020-10-08] MEDS ORDERED: HYDROmorphone INJ 1 MG/ML SYRINGE IV PRN (06:53)
[2020-10-08] MEDS ORDERED: fentaNYL citrate 100 MCG/2 ML VIAL IV PRN (06:53)
[2020-10-08] MEDS ORDERED: ePHEDrine sulfate 50 MG/ML AMP IV PRN (06:53)
[2020-10-08] MEDS ORDERED: REMIFENTANIL HCL 1 MG VIAL ONE ×2 (06:53→09:31)
[2020-10-08] MEDS ORDERED: PROPOFOL IV EMULSION 10 MG/ML 100 ML VIAL IV ONE (06:53)
[2020-10-08] MEDS ORDERED: VANCOMYCIN HCL 1000MG/20ML VIAL ONE (07:27)
[2020-10-08] MEDS ORDERED: GELATIN SPONGE 12-7MM ONE (07:27)
[2020-10-08] MEDS ORDERED: THROMBIN FOR SOLN 20000 UNIT KIT ONE (07:28)
[2020-10-08] MEDS ORDERED: HYDROmorphone INJ 1 MG/ML SYRINGE ONE (10:31)
--- NOTE | 2020-10-08 11:12 | XRay Report ---
CERVICAL SPINE 5 VIEWS HISTORY: C6-7 REMOVE HARDWARE/ACDF C5-6 POSS C6-7 COMPARISON: June 09, 2017 FINDINGS: No acute fracture dislocation seen. Interval placement of metallic ACDF at C5-C6 level with disc spacer. Previously seen ACDF within C6-C7 level is not well visualized however evaluation is limited because C7 vertebral body is obscured by overlying patient's shoulder. Endotracheal tube and multiple overlying wires are seen partially limiting evaluation. IMPRESSION: Interval placement of ACDF at 5 C6 level with postoperative changes as detailed above. ACT 112: Negative or not required by law. Electronically signed by: Clara Espinoza DO 10/08/2020 11:11 AM
--- NOTE | 2020-10-08 11:40 | Post Operative Brief Note ---
PG Immediate Post Op with CF Date of Surgery October 08, 2020 Pre & Post Diagnosis Operation Date: 10/08/20 07:15 Pre-Op Diagnosis: Cervical Myelopathy Post-Op Diagnosis: Cervical Myelopathy I identified the patient and participated in the time-out.: Yes Procedure Removal of Hardware C6-C7, Anterior Cerivcal Discectomy and Fusion C5-C6, Local Autograft, Allograft Surgeon Deborah Monique MD Neuropsychology Director Roscoe Wild PA-C Estimated Blood Loss 25 Findings Consistent with Post-Op Diagnosis Drains Mccoy Catheter (16Fr inserted by Elizabeth Linares RN without issues.) and Archie- Becker Drain (10fr round)
[2020-10-08] MEDS ORDERED: PHARMACY GLYCEMIC MGMT CONSULT PRN (11:59)
[2020-10-08] MEDS ORDERED: METOPROLOL SUCC 25MG EXT REL TAB PO STA (12:32)
--- NOTE | 2020-10-08 12:33 | Hospitalist Consultation ---
Date of Consultation October 08, 2020 Assessment & Plan (1) Tremor: Post-op tremors. Concern from primary team for seizure as this can occur due to the neuromonitoring system used during the ACDF. However, tremors occurred in all 4 limbs while the patient was awake, alert, and communicating. This essentially rules out seizure (at least during that episode) as you can't have a generalized tonic-clonic seizure and maintain mental status. - Ddx includes essential tremor (worsened by anesthesia, surgery, and not taking his home beta-charlene prior to surgery) or malignant hyperthermia. - MH unlikely as he has normal temperature during surgery and after. Will get two CKs (now and in the AM) to ensure no worsening/ongoing muscle damage. - Will get labs as his K+ was quite low when last checked this month. - Resumed home beta-charlene and reportedly his tremor is resolving/improving. - Discussed with Dr. Levine. (2) Cervical myelopathy: S/p ACDF C5/C6 on 10/[address] Monique. No surgical complications per Dr. Monique. - Post-op care per primary team - DVT ppx per primary team (avoid aspirin) (3) Chronic kidney disease, stage III (moderate): Baseline Cr ~1.3 - 1.4. - At baseline last check on 09/17. - Monitor Cr (4) HTN (hypertension): BP presently is 170/80. Likely due to holding his AM meds prior to surgery. - Restart home amlodipine, chlorthalidone, and eplerenone, and metoprolol - Monitor BP and electrolytes (5) CVA (cerebral vascular accident): Prior with reportedly no residual issues. - Monitor neurologic status as he recovers further from surgery (6) Diabetes: A1c was 10.2% this month. - Continue long-acting insulin - Sliding scale insulin (7) Heart disease: Unclear cardiac history. No present chest pain or indication of acute cardiac issues. - Hold ASA post-op - Continue home beta-charlene, statin, eplerenone Thank you for the consult! The patient has a [facility] PCP and per hospital policy, [facility] Please reach out to the [facility] service for further recommendations. History of Present Illness Reason for Consultation: Post-op tremor Attending Physician: Deborah Monique MD History of Present Illness 70yo M w/ hx of HTN, DM, HLD, GERD who presents as a stat medical consult for concern for seizure. The patient had successful ACDF surgery with Dr. Monique today. In the PACU, he was noted to have ongoing tremor on the left arm which then transiently affected the left neck, right arm, and both legs before fading away and returning only to the left arm. He was initially lethargic and confused, made more difficult to i nterpret by the fact that he was coming out from anesthesia. However, his mental status has resolved and he is now conversing; however, he has continuing left arm tremor. Though he isn't an excellent historian on it, he reports some prior tremor before surgery. He reports to me that he takes a medication for it, but cannot recall the name. He does tell me that he did not take the medication this morning though in preparation for surgery. Otherwise, he is in good spirits and denies pain anywhere else in the body and has no other issues. Allergies Allergy/AdvReac Type Severity Reaction Status Date / Time carvedilol Allergy Severe extreme Verified 10/08/20 06:03 fatigue.pain,difficulty walking,sensitivity to sun bee venom protein (honey bee) Allergy Intermediate sometimes Verified 10/08/20 06:03 swelling at sting site Home Medications Medication Instructions Recorded Confirmed Type acetaminophen 500 mg tablet 1,000 mg PO DIRECTED PRN 01/26/18 10/08/20 History (Tylenol Extra Strength) aspirin 81 mg tablet,delayed 81 mg PO QAM 01/26/18 10/08/20 History release (Aspir-) citalopram 20 mg tablet (Celexa) 20 mg PO QAM 01/26/18 10/08/20 History insulin glargine 100 unit/mL 25 unit SUBCUT QAM 01/26/18 10/08/20 History subcutaneous solution (Lantus U-100 Insulin) atorvastatin 10 mg tablet 10 mg PO DAILY #30 tab 10/31/18 10/08/20 Rx metoprolol succinate 25 mg 25 mg PO DAILY #30 tab 10/31/18 10/08/20 Rx tablet,extended release 24 hr chlorthalidone 25 mg tablet 25 mg PO QAM #90 tab 03/27/19 10/08/20 Rx eplerenone 25 mg tablet 25 mg PO DAILY #90 tab 05/13/20 10/08/20 Rx amlodipine 10 mg tablet 10 mg PO QAM #90 tab 07/10/20 10/08/20 Rx meloxicam 7.5 mg tablet 7.5 mg PO DAILY 14 Days #14 tab 09/12/20 10/08/20 Rx pantoprazole 20 mg tablet,delayed 20 mg PO DAILY 14 Days #14 tab 09/12/20 10/08/20 Rx release Patient History Medical History Anxiety Arthritis Chronic kidney disease, stage III (moderate) CVA (cerebral vascular accident) 2017 (NO CURRENT PROBLEMS "RECOVERED") Diabetes mellitus, type 2 Fatty liver HTN (hypertension) Hx of gout Hyperlipidemia Surgical History Fusion of spine CERVICAL H/O metal removed from eye History of arthroscopy LEFT KNEE X 3 RT KNEE X 1 History of colonoscopy History of tooth extraction Family History Father Family history of diabetes mellitus Other Cancer Diabetes Hearing loss Heart disease Hypertension Lung disease No family history of adverse response to anesthesia No family history of bleeding disorder Social History Smoking Status: Former smoker Tobacco Type: Smokeless Tobacco (Dip or Chew) Smoking End Date: 30 YEARS AGO; Number of Years Since Quit: 30; Second Hand Exposure: No; Do You Dip or Chew Tobacco: Yes (ADVISED (2 CANS PER WEEK)); Tobacco Cessation Education Requested by Patient: No Hx Alcohol Use: Yes Alcohol type: hard liquor Hx Substance Use: No Preferred Language: Argentine Communication Ability: Effective Clinical Data Analyst Required: No Beliefs That Will Affect Care: None marital status: Current Living Situation: Spouse current occupational status: retired How many Children do You have: 4 Other Information That Helps Us Care for You: No Feels Safe at Home: Yes Safety Concerns: Feels Safe At This Time Assistive Devices: Denture - Upper, Glasses and Hearing Aid - Bilateral Assistive Devices Comment: READING GLASSES Review of Systems Review of Systems: All systems reviewed & are unremarkable except as noted in HPI & below Physical Exam Constitutional: WD/WN, vitals as above Eyes: EOM intact bilaterally; no conjunctival abnormality ENMT: external ear and nose normal, oropharynx normal Neck: trachea midline, no thyromegaly normal visual inspection Respiratory: normal respiratory effort, lungs clear to auscultation no respiratory distress Cardiovascular: RRR, no murmur, no edema Gastrointestinal (Abdomen): Inspection/Auscultation: abdomen normal to inspection; abdomen not distended Musculoskeletal: no cyanosis or clubbing, extremities motor strength 5/5 Skin: no rashes, warm and dry Neurologic: moves all extremities and awake Motor/Sensory: + tremor (Left arm) Psychiatric: Orientation: alert, oriented to person and cooperative Results & Data Results & Data ([facility]) Vital Signs (Past 12 Hours) Vital Signs Temp Pulse Pulse Resp BP BP Pulse Ox 10/08/20 12:05 36.9 C 87 16 165/91 H 97 10/08/20 11:55 88 17 169/87 H 95 10/08/20 11:45 87 15 153/86 H 97 10/08/20 11:35 90 15 162/79 H 98 10/08/20 11:25 37.0 C 81 12 167/77 H 98 10/08/20 06:07 37 C 51 L 20 161/73 H 96 PG Care Time/CCT Total # of Minutes Spent Total Time Spent with Patient: Total time spent is greater than 50% in coordination of care (as documented) at patient's floor/unit and/or counseling patient: Coding Level of Care Code 80812 Inpt Consult Level 5 Diagnoses Tremor R25.1 Cervical myelopathy G95.9 Chronic kidney disease, stage III (moderate) N18.3 CVA (cerebral vascular accident) I63.9 HTN (hypertension) I10 Diabetes E11.9 Heart disease I51.9
--- NOTE | 2020-10-08 13:51 | Anesthesiology Progress Note ---
Date of Service October 08, 2020 Anesthesia Post Procedure Vital Signs Vital Signs: Temp Pulse Pulse Resp BP BP Pulse Ox 10/08/20 13:30 82 16 170/84 H 97 10/08/20 13:15 82 16 156/76 H 98 10/08/20 13:00 83 16 158/81 H 98 10/08/20 12:45 81 16 160/83 H 98 10/08/20 12:35 83 15 160/79 H 98 10/08/20 12:25 36.9 C 86 18 156/84 H 96 10/08/20 12:15 86 15 149/81 H 95 10/08/20 12:05 36.9 C 87 16 165/91 H 97 10/08/20 11:55 88 17 169/87 H 95 10/08/20 11:45 87 15 153/86 H 97 10/08/20 11:35 90 15 162/79 H 98 10/08/20 11:25 37.0 C 81 12 167/77 H 98 10/08/20 06:07 37 C 51 L 20 161/73 H 96 Transfer of Care Handoff Completed per policy Notes Mental Status: alert / awake / arousable and participated in evaluation Patient Amnestic to Procedure: Yes Nausea / Vomiting: adequately controlled Pain: adequately controlled Airway Patency, RR, SpO2: stable & adequate BP & HR: stable & adequate Hydration State: stable & adequate Anesthetic Complications: no major complications apparent and Pt Satisfied with anesthetic care Notes: Patient had a left upper extremity tremor post-op. Surgeon aware and performed neuro exam and patient did not appear to have any other neurological abnormalities. Hospitalist service consulted and evaluated patient at bedside. [place] low likelihood CVA or seizure. Tremor improved during postop stay. Patient deemed well enough to be transferred to med/tele. Patient's updated of his condition and had questions answered.
[2020-10-08] MEDS ORDERED: DO NOT ADMINISTER PNEUMOCOCCAL VACCINE PRN (14:16)
[2020-10-08] MEDS ORDERED: ACETAMINOPHEN 500 MG TAB PO PRN (14:16)
[2020-10-08] MEDS ORDERED: LORazepam 0.5 MG TAB PO PRN (14:16)
[2020-10-08] MEDS ORDERED: LORazepam 0.5 MG/1 ML VIAL IV PRN (14:16)
[2020-10-08] MEDS ORDERED: DO NOT ADMINISTER FLU VACCINE PRN (14:16)
[2020-10-08] MEDS ORDERED: SOD PHOSPHATE/SOD BIPHOSPHATE ENEMA 132 ML BTL PR PRN (14:16)
[2020-10-08] MEDS ORDERED: diphenhydrAMINE Capsule 25 MG CAP PO PRN (14:16)
[2020-10-08] MEDS ORDERED: METOCLOPRAMIDE HCL INJ 5 MG/ML 2 ML VIAL IV PRN (14:16)
[2020-10-08] MEDS ORDERED: hydrOXYzine HCl 25 MG TAB PO PRN (14:16)
[2020-10-08] MEDS ORDERED: HYDROmorphone INJ 0.5 MG/0.5 ML SYR IV PRN (14:16)
[2020-10-08] MEDS ORDERED: LACTATED RINGER'S 1,000 ML IV SCH (14:16)
[2020-10-08] MEDS ORDERED: HYDROCODONE/ACETAMOPHEN 5/325MG TAB PO PRN (14:16)
[2020-10-08] MEDS ORDERED: ONDANSETRON 4 MG OD TAB PO PRN (14:16)
[2020-10-08] MEDS ORDERED: MAGNESIUM HYDROXIDE SUSP 30 ML UDC PO PRN (14:16)
[2020-10-08] MEDS ORDERED: ALUMINUM/MAGNESIUM SUSP 30 ML UDC PO PRN (14:16)
[2020-10-08] MEDS ORDERED: RACEPINEPHRINE 2.25% NEBU SOLN 0.5 ML VIAL INH PRN (14:16)
[2020-10-08] MEDS ORDERED: dexAMETHasone 8 MG in SYRINGE 0 ML IV PRN (14:16)
[2020-10-08] MEDS ORDERED: PROMETHAZINE HCL 12.5 MG in SODIUM CHLORIDE 0.9% 50 ML IV PRN (14:16)
[2020-10-08] MEDS ORDERED: ACETAMINOPHEN 1,000 MG/100 ML VIAL IV PRN (14:16)
[2020-10-08] MEDS ORDERED: NALOXONE HCL 0.4 MG/1 ML VIAL/CARP IV PRN (14:16)
[2020-10-08] MEDS ORDERED: FAMOTIDINE 20 MG TAB PO PRN (14:16)
[2020-10-08] MEDS: CYCLOBENZAPRINE HCL 10 MG TAB PO SCH ×2 (16:13→22:09)
[2020-10-08] MEDS: ceFAZolin 2000MG 2,000 MG/15 ML SYR IV SCH ×2 (16:13→23:58)
[2020-10-08] MEDS: [UNRECOGNIZED DRUG - OTHER] SCH (16:13)
[2020-10-08] MEDS: INSULIN ASPART 100 UNITS/ML 3 ML PEN SC SCH ×2 (17:04→20:22)
[2020-10-08 18:08] LABS: Hematocrit (blood only) 47.1 % (42-52); Hemoglobin 17.1 g/dL (14.0-18.0); Mean Corpuscular Hemoglobin 32.3 pg (25-34); Mean Corpuscular Hgb Conc 36.3 g/dL (32-36); Mean Platelet Volume 11.8 fL (7.4-10.4); Platelet Count 115 K/uL (130-400); RDW Coefficient of Variation 12.4 % (11.5-14.5); RDW Standard Deviation 40.4 fL (36.4-46.3); Red Blood Count 5.29 M/uL (4.7-6.1); White Blood Count 11.33 K/uL (4.8-10.8)
[2020-10-08] MEDS ORDERED: GLUCOSE 40% GEL 15 GM TUBE PO PRN (18:15)
[2020-10-08] MEDS ORDERED: CARBOHYDRATES FOR HYPOGLYCEMIA PO PRN (18:15)
[2020-10-08] MEDS ORDERED: GLUCOSE 10 TABS/TUBE PO PRN (18:15)
[2020-10-08] MEDS ORDERED: GLUCAGON FOR INJ 1 MG VIAL IM PRN (18:15)
[2020-10-08] MEDS ORDERED: DEXTROSE 50% 50 ML SYRINGE IV PRN (18:15)
[2020-10-08 18:28] LABS: Albumin Level 3.4 gm/dl (3.4-5.0); Creatinine Clr Calc Pharmacy 56.5 ml/min; Est GFR (African American) 52.5 ml/min; Est GFR (Non-African American) 45.3 ml/min; Magnesium 1.8 mg/dl (1.8-2.4); Potassium 3.3 mmol/L (3.5-5.1)
[2020-10-08 18:31] LABS: Albumin Globulin Ratio 0.8 (0.9-2); Globulin 4.3 gm/dl (2.5-4.0); Total Protein 7.7 gm/dl (6.4-8.2)
[2020-10-08] MEDS: POTASSIUM CHLORIDE CRTAB 20 MEQ TABCR PO SCH ×2 (20:07→22:03)
[2020-10-08] MEDS: MAGNESIUM SULFATE / D5W 1 GM/100 ML BAG IV SCH ×3 (20:14→23:58)
[2020-10-08] MEDS: POTASSIUM CHLORIDE / WTR 10 MEQ/100 ML PLCT IV SCH ×3 (20:15→23:58)
[2020-10-08] MEDS: GABAPENTIN 300 MG CAP PO SCH (20:18)
[2020-10-08] MEDS: DOCUSATE SODIUM/SENNA 50/8.6MG TAB PO SCH (20:18)
--- NOTE | 2020-10-08 20:28 | Communication Note ---
Date of Service: October 08, 2020 Called re: patient having recurrent left upper extremity and jaw movements while in PACU at around 12pm (within 30 minute of extubation) Patient assessed along with anesthesiology team alert and oriented x1 CN II, III, IV, , VII, IX, X, II normal neurologic exam unchanged for upper extremity and lower extremity: Musculoskeletal: 5/5 motor strength bilateral C5-T1, L2-S1 except right C6 4/5, right C8 4/5, left C8 4+/5, right T1 4+/5. Neurologic: Sensation 2/2 to light touch bilateral C5-T1, L2-S1 except right index finger tip 1/2 (chronic). Noted to have recurrent movements of left upper extremity while at rest and with motion, along with recurrent movements of jaw Plan: - Hospitalist service consulted STAT for consideration for possible seizure post-neuoromonitoring. Patient seen and reviewed by Dr. Celestine Wheat (hospitalist), and discussed with Dr. Bobby Levine (neurology) - believed to be secondary to potential baseline tremor, possible side effect of medications received intraop; will admit to telemetry floor for monitoring - Neuromonitoring service consulted with review of neuromonitoring activities by remote neurologist; no concerning features noted - tremors improved upon reassessment by me 3 hours later; will monitor
[2020-10-09] MEDS ORDERED: INSULIN ASPART 100 UNITS/ML 3 ML PEN SC SCH (02:00)
[2020-10-09] MEDS: POLYETHYLENE (MIRALAX) 17 GM PACK PO SCH ×3 (05:35→17:08)
[2020-10-09] MEDS: CYCLOBENZAPRINE HCL 10 MG TAB PO SCH ×3 (05:35→20:39)
--- NOTE | 2020-10-09 06:47 | Orthopedic Progress Note ---
Date of Service October 09, 2020 Assessment & Plan (1) Status post spinal surgery: Plan: upright x-rays when able drain to be monitored today, likely removal this PM vs. tomorrow d/c home likely tomorrow Admission and Anticipated Discharge Date Admission Date: October 08, 2020 Subjective no new numbness/weakness nohoarseness nodysphagia. Drinking clear fluids well/eating well pain well-controlled post-op jaw and left upper extremity tremor resolved Hgb pending this AM Glucose 266 this AM, pharmacy glycemic consult and hospitalist involved Physical Exam Physical Exam: vitals: see vital signs section; on RA overnight neck: soft, non-distended dressing: mild serosang discharge drain: 30 cc/8hr vascular: no calf tenderness or swelling bilaterally. no signs of DVT neuro: Musculoskeletal: 5/5 motor strength bilateral C5-T1, L2-S1 except right C6 4/5, right C8 4/5, left C8 4+/5, right T1 4+/5. Neurologic: Sensation 2/2 to light touch bilateral C5-T1, L2-S1 except right index finger tip 1/2 (chronic). Results & Data ([facility]) Vital Signs (Past 12 Hours) Vital Signs Temp Pulse Pulse Resp BP Pulse Ox 10/09/20 03:25 80 14 95 10/09/20 03:08 36.5 C 74 17 162/84 H 91 10/09/20 00:34 77 10/08/20 23:04 36.6 C 78 18 157/77 H 92 10/08/20 22:11 82 13 97 10/08/20 19:24 36.5 C 80 19 163/81 H 92 10/08/20 19:21 82 12 94 Diagnostic Findings post-op x-ray cervical spine pending PG Care Time/CCT Total # of Minutes Spent Total Time Spent with Patient: Total time spent is greater than 50% in coordination of care (as documented) at patient's floor/unit and/or counseling patient: Coding Level of Care Code None Diagnoses Status post spinal surgery Z98.890
[2020-10-09] MEDS ORDERED: INSULIN GLARGINE SOLOSTAR 100 UNITS/ML 3 ML PEN SC ONE (07:45)
[2020-10-09 07:51] LABS: Hematocrit (blood only) 44.7 % (42-52); Mean Corpuscular Hgb Conc 35.8 g/dL (32-36); Mean Corpuscular Volume 89.4 fL (80-100); Platelet Count 119 K/uL (130-400); RDW Coefficient of Variation 12.5 % (11.5-14.5); RDW Standard Deviation 40.3 fL (36.4-46.3)
[2020-10-09 07:57] LABS: Basophils # (auto) 0.01 K/uL (0-0.2); Basophils % (auto) 0.1 %; Immature Granulocytes # (auto) 0.07 K/uL (0.00-0.02); Immature Granulocytes % (auto) 0.4 %; Lymphocytes # (auto) 0.77 K/uL (1.2-3.4); Lymphocytes % (auto) 4.9 %; Monocytes # (auto) 0.74 K/uL (0.11-0.59); Monocytes % (auto) 4.7 %; Neutrophils # (auto) 14.21 K/uL (1.4-6.5); Neutrophils % (auto) 89.9 %
[2020-10-09 08:11] LABS: BUN Creatinine Ratio 14.6 (10-20); Creatinine Clr Calc Pharmacy 60.8 ml/min; Est GFR (African American) 58.4 ml/min; Est GFR (Non-African American) 50.4 ml/min; Magnesium 2.5 mg/dl (1.8-2.4); Potassium 3.9 mmol/L (3.5-5.1)
[2020-10-09] MEDS: [UNRECOGNIZED DRUG - OTHER] SCH ×2 (08:12)
[2020-10-09] MEDS: INSULIN ASPART 100 UNITS/ML 3 ML PEN SC SCH ×4 (08:16→20:39)
[2020-10-09] MEDS: ATORVASTATIN 10 MG TAB PO SCH (08:17)
[2020-10-09] MEDS: CHLORTHALIDONE 25 MG TAB PO SCH (08:17)
[2020-10-09] MEDS: PANTOprazole 40 MG TAB PO SCH (08:17)
[2020-10-09] MEDS: amLODIPine BESYLATE 5 MG TAB PO SCH (08:17)
[2020-10-09] MEDS: CITALOPRAM 20 MG TAB PO SCH (08:18)
[2020-10-09] MEDS: METOPROLOL SUCC 25MG EXT REL TAB PO SCH (08:18)
[2020-10-09] MEDS: GABAPENTIN 300 MG CAP PO SCH ×2 (08:18→20:39)
[2020-10-09 08:24] LABS: Beta-Hydroxybutyrate 1.2 mg/dl (0.2-2.81)
[2020-10-09] MEDS ORDERED: LANTUS PER UNIT CHARGE SQ SCH (09:00)
--- NOTE | 2020-10-09 10:41 | XRay Report ---
XR cervical spine 2 or 3V CLINICAL HISTORY: upright 2v; post-up spine COMPARISON STUDY: Cervical spine MRI September 13, 2020. Cervical spine CT September 20, 2020. FINDINGS: These images demonstrate a C5-C6 anterior discectomy and fusion. The hardware is intact. A surgical drain is noted. There are no unexpected radiopaque foreign bodies. Previous C6-C7 fusion is noted. IMPRESSION: Expected findings following C5-C6 anterior discectomy and fusion. ACT 112: Negative or not required by law. Electronically signed by: Ruperto Hodge M.D. 10/09/2020 10:40 AM
--- NOTE | 2020-10-09 12:28 | Pharmacy Report ---
Pharmacy Glycemic Short Note 2 - Date of Service October 09, 2020 - Glycemic Short BSG Results (Last 24 hours): 10/08/20 10/08/20 10/08/20 15:57 17:42 20:15 Glucose 294 H POC Glucose 262 H 298 H 10/09/20 10/09/20 10/09/20 01:51 06:40 06:58 Glucose 339 H* POC Glucose 266 H 333 H* 10/09/20 11:11 Glucose POC Glucose 269 H OUTPATIENT ANTIDIABETIC REGIMEN: * Lantus 25 units Qam * A1c 10.2% 09/17/20 ASSESSMENT: * 70 year old admitted with possible tremors s/p spinal surgery 10/07. Type 2 diabetic managed on Lantus at home * Pharmacy consulted for glycemic management. Received ~43 units total of insulin yesterday, per med rec took 15 units of long acting insulin prior to arrival * BSGs elevated overnight and into this AM - plan to give Lantus 40 units x 1 now (help make up for basal deficit yesterday), tighten novolog to stress of 3 dosing PLAN FOR INPATIENT GLYCEMIC CONTROL: * Hold outpatient oral diabetes medications * Basal insulin * Lantus 40 units x 1 * Bolus insulin * NovoLog per scale ACHS or Q6hrs while NPO * Goal Range: Low 110 mg/dL - High 140 mg/dL * Correction Factor: 15 mg/dL/unit * Nutritional / Prandial insulin per carb ratio of 1 unit per 5 grams CHO consumed PLAN FOR DISCHARGE: * A1c 10.2% - goal <7% * Previous records indicate A1c of 8.6% in 2018 - Patient would likely benefit from an insulin adjustment on discharge. Will continue to follow trends to determine insulin needs
[2020-10-09] MEDS: EPLERENONE PO SCH (12:34)
--- NOTE | 2020-10-09 13:36 | Hospitalist Progress Note ---
Date of Service October 09, 2020 Assessment & Plan (1) Tremor: Plan: Doing okay now. No further episodes of any tremor. Electrolytes are okay. CK level is normal. Continue the INKJET OPERATOR beta-charlene. (2) Chronic kidney disease, stage III (moderate): Plan: Renal function close to baseline. Any nephrotoxic agents. Monitor daily BMP. (3) CVA (cerebral vascular accident): Plan: No residual deficits. (4) Status post spinal surgery: Plan: Pain management/DVT prophylaxis as per primary team. Continue to work with PT/OT. (5) HTN (hypertension): Plan: Systolic blood pressure is better controlled now. Contributed by pain as well. Continue INKJET OPERATOR amlodipine, chlorthalidone, metoprolol and eplerenone (6) Heart disease: Plan: Currently denies any chest pain. Resume aspirin. (7) Diabetes: Plan: Glucose of 339 this morning. Continue with insulin sliding scale. Start INKJET OPERATOR Lantus 25 units at bedtime Pharmacy consult for further management. Admission and Anticipated Discharge Date Admission Date: October 08, 2020 Subjective Patient is doing okay this morning. Does have some neck discomfort. Reports tremor is resolved. Denies any chest pain or shortness of breath. Denies any headache or dizziness. Denies any nausea or vomiting. Rest of the review of system is negative. Review of Systems Review of Systems: All systems reviewed & are unremarkable except as noted in HPI & below Physical Exam Physical Exam: General: A&Ox3. HENT: NCAT, MMM, EOMI Eyes: PERRLA Neck: Neck collar in place with a drain CVS: normal rate and rhythm Resp: b/l good breath sounds Abdomen: Soft, ND/NT, +BS Extremities: Absence of any edema Neuro: face symmetric, no focal deficit, absence of any tremors Skin: warm and dry, no rashes/lesions/errythema MSK: normal ROM, no joint swelling/erythema Results & Data Results & [facility]) Vital Signs (Past 12 Hours) Vital Signs Temp Pulse Resp BP BP Pulse Ox 10/09/20 11:20 70 16 97 10/09/20 11:03 36.4 C L 65 16 128/65 96 10/09/20 08:00 77 18 95 10/09/20 07:23 36.5 C 65 18 154/66 H 94 10/09/20 03:25 80 14 95 10/09/20 03:08 36.5 C 74 17 162/84 H 91 Laboratory Results Laboratory Results - last 24 hr 10/08/20 10/08/20 10/08/20 15:57 17:42 17:42 WBC 11.33 H RBC 5.29 Hgb 17.1 Hct 47.1 MCV 89.0 MCH 32.3 MCHC 36.3 H RDW Std Deviation 40.4 RDW Coeff of Beatris 12.4 Plt Count 115 L MPV 11.8 H Immature Gran % (Auto) Neut % (Auto) Lymph % (Auto) [place] % (Auto) Eos % (Auto) Baso % (Auto) Neut # (Auto) Lymph # (Auto) [place] # (Auto) Eos # (Auto) Baso # (Auto) Immature Gran # (Auto) Sodium 136 Potassium 3.3 L Chloride 100 Carbon Dioxide 25 Anion Gap 11.0 BUN 19 H Creatinine 1.55 H Est Cr Clr Drug Dosing 56.5 Est GFR ( Amer) 52.5 Est GFR (Non-Af Amer) 45.3 BUN/Creatinine Ratio 12.0 Glucose 294 H POC Glucose 262 H Calcium 9.0 Magnesium 1.8 Total Bilirubin 1.0 AST 38 H ALT 48 Alkaline Phosphatase 123 H Total Creatine Kinase 223 Total Protein 7.7 Albumin 3.4 Globulin 4.3 H Albumin/Globulin Ratio 0.8 L Beta-Hydroxybutyric Acd 10/08/20 10/09/20 10/09/20 20:15 01:51 06:40 WBC 15.80 H RBC 5.00 Hgb 16.0 Hct 44.7 MCV 89.4 MCH 32.0 MCHC 35.8 RDW Std Deviation 40.3 RDW Coeff of Beatris 12.5 Plt Count 119 L MPV 12.0 H Immature Gran % (Auto) 0.4 Neut % (Auto) 89.9 Lymph % (Auto) 4.9 [place] % (Auto) 4.7 Eos % (Auto) 0.0 Baso % (Auto) 0.1 Neut # (Auto) 14.21 H Lymph # (Auto) 0.77 L [place] # (Auto) 0.74 H Eos # (Auto) 0.00 Baso # (Auto) 0.01 Immature Gran # (Auto) 0.07 H Sodium Potassium Chloride Carbon Dioxide Anion Gap BUN Creatinine Est Cr Clr Drug Dosing Est GFR ( Amer) Est GFR (Non-Af Amer) BUN/Creatinine Ratio Glucose POC Glucose 298 H 266 H Calcium Magnesium Total Bilirubin AST ALT Alkaline Phosphatase Total Creatine Kinase Total Protein Albumin Globulin Albumin/Globulin Ratio Beta-Hydroxybutyric Acd 10/09/20 10/09/20 10/09/20 06:40 06:58 11:11 WBC RBC Hgb Hct MCV MCH MCHC RDW Std Deviation RDW Coeff of Beatris Plt Count MPV Immature Gran % (Auto) Neut % (Auto) Lymph % (Auto) [place] % (Auto) Eos % (Auto) Baso % (Auto) Neut # (Auto) Lymph # (Auto) [place] # (Auto) Eos # (Auto) Baso # (Auto) Immature Gran # (Auto) Sodium 135 L Potassium 3.9 D Chloride 102 Carbon Dioxide 26 Anion Gap 8.0 BUN 21 H Creatinine 1.42 H Est Cr Clr Drug Dosing 60.8 Est GFR ( Amer) 58.4 Est GFR (Non-Af Amer) 50.4 BUN/Creatinine Ratio 14.6 Glucose 339 H* POC Glucose 333 H* 269 H Calcium 9.0 Magnesium 2.5 H Total Bilirubin AST ALT Alkaline Phosphatase Total Creatine Kinase 211 Total Protein Albumin Globulin Albumin/Globulin Ratio Beta-Hydroxybutyric Acd 1.20
[2020-10-09] MEDS ORDERED: LANTUS PER UNIT CHARGE SQ STA (13:50)
[2020-10-09] MEDS ORDERED: PHARMACY GLYCEMIC MGMT CONSULT STA (13:50)
[2020-10-09] MEDS: DOCUSATE SODIUM/SENNA 50/8.6MG TAB PO SCH (20:37)
[2020-10-10] MEDS ORDERED: INSULIN ASPART 100 UNITS/ML 3 ML PEN SC SCH
[2020-10-10] MEDS: POLYETHYLENE (MIRALAX) 17 GM PACK PO SCH (00:16)
[2020-10-10] MEDS: CYCLOBENZAPRINE HCL 10 MG TAB PO SCH ×2 (05:55→14:45)
[2020-10-10] MEDS ORDERED: COUGH DROP (SUGAR FREE) LOZ 24 LOZ/1 BOX BUCCAL ONE (05:58)
[2020-10-10] MEDS ORDERED: bisacodyL 10 MG SUPP PR PRN (08:00)
--- NOTE | 2020-10-10 08:30 | Orthopedic Progress Note ---
Date of Service October 10, 2020 Assessment & Plan (1) Status post spinal surgery: Plan: will need clearance by hospitalist/pharmacy glycemic control for diabetes with elevated blood sugar levels prior to discharge possible discharge today if no active plans by aboe Admission and Anticipated Discharge Date Admission Date: October 08, 2020 Subjective no new numbness/weakness no hoarseness no dysphagia. Eating solids well pain well-controlled denies any tremors Glucose 191 this AM, pharmacy glycemic consult and hospitalist involved Physical Exam Physical Exam: vitals: see vital signs section; on RA overnight neck: soft, non-distended dressing: dry drain: removed yesterday evening vascular: no calf tenderness or swelling bilaterally. no signs of DVT neuro: Musculoskeletal: 5/5 motor strength bilateral C5-T1, L2-S1 except right C6 4/5, right C8 4/5, left C8 4+/5, right T1 4+/5. Neurologic: Sensation 2/2 to light touch bilateral C5-T1, L2-S1 except right index finger tip 1/2 (chronic). Results & Data ([facility]) Vital Signs (Past 12 Hours) Vital Signs Temp Pulse Pulse Resp BP Pulse Ox 10/10/20 07:33 36.7 C 60 16 138/76 94 10/10/20 07:20 72 16 94 10/10/20 03:05 67 16 95 10/10/20 03:04 36.7 C 54 L 16 138/74 95 10/09/20 23:30 65 16 95 10/09/20 22:51 36.6 C 63 16 145/77 H 95 Diagnostic Findings AP and lateral cervical spine x-rays independently reviewed/interpreted. Findings: hardware in appropriate position PG Care Time/CCT Total # of Minutes Spent Total Time Spent with Patient: Total time spent is greater than 50% in coordination of care (as documented) at patient's floor/unit and/or counseling patient: Coding Level of Care Code None Diagnoses Status post spinal surgery Z98.890
[2020-10-10] MEDS: GABAPENTIN 300 MG CAP PO SCH (08:33)
[2020-10-10] MEDS: ATORVASTATIN 10 MG TAB PO SCH (08:33)
[2020-10-10] MEDS: METOPROLOL SUCC 25MG EXT REL TAB PO SCH (08:33)
[2020-10-10] MEDS: CITALOPRAM 20 MG TAB PO SCH (08:33)
[2020-10-10] MEDS: CHLORTHALIDONE 25 MG TAB PO SCH (08:34)
[2020-10-10] MEDS: EPLERENONE PO SCH (08:34)
[2020-10-10] MEDS: amLODIPine BESYLATE 5 MG TAB PO SCH (08:34)
[2020-10-10] MEDS: PANTOprazole 40 MG TAB PO SCH (08:35)
[2020-10-10] MEDS: INSULIN ASPART 100 UNITS/ML 3 ML PEN SC SCH ×2 (08:39→12:43)
[2020-10-10] MEDS ORDERED: INSULIN GLARGINE SOLOSTAR 100 UNITS/ML 3 ML PEN SC SCH (09:00)
[2020-10-10 11:15] VITALS: O2SAT 94
--- NOTE | 2020-10-10 11:57 | Hospitalist Progress Note ---
Date of Service October 10, 2020 Assessment & Plan (1) Tremor: Plan: Doing okay now. No further episodes of any tremor. Electrolytes are okay. CK level is normal. Continue the PURCHASING AGENT beta-charlene. (2) Chronic kidney disease, stage III (moderate): Plan: Renal function close to baseline. Any nephrotoxic agents. Monitor daily BMP. (3) CVA (cerebral vascular accident): Plan: No residual deficits. (4) Status post spinal surgery: Plan: Pain management/DVT prophylaxis as per primary team. Continue to work with PT/OT. (5) HTN (hypertension): Plan: Systolic blood pressure is better controlled now. Contributed by pain as well. Continue PURCHASING AGENT amlodipine, chlorthalidone, metoprolol and eplerenone (6) Heart disease: Plan: Currently denies any chest pain. Resume aspirin. (7) Diabetes: Plan: Glucose of 131 this morning. Continue with insulin sliding scale. Increase Lantus to 35 units daily and continue with the weekly Ozempic injections. Admission and Anticipated Discharge Date Admission Date: October 08, 2020 Subjective Doing okay this morning. He is awake, alert and oriented x3 denies any significant neck pain. Denies any further episodes of any tremors. Denies any slurred speech. Has any chest pain, shortness of breath, abdominal pain, diarrhea or dysuria. Denies any headache or dizziness Review of Systems Review of Systems: All systems reviewed & are unremarkable except as noted in HPI & below Physical Exam Physical Exam: General: A&Ox3. HENT: NCAT, MMM, EOMI Eyes: PERRLA Neck: Neck collar in place CVS: normal rate and rhythm Resp: b/l good breath sounds Abdomen: Soft, ND/NT, +BS Extremities: Absence of any edema Neuro: face symmetric, no focal deficit, absence of any tremors Skin: warm and dry, no rashes/lesions/errythema MSK: normal ROM, no joint swelling/erythema Results & Data Results & Data ([facility]) Vital Signs (Past 12 Hours) Vital Signs Temp Pulse Pulse Resp BP Pulse Ox 10/10/20 11:20 66 16 94 10/10/20 10:08 96 10/10/20 07:33 36.7 C 60 16 138/76 94 10/10/20 07:20 72 16 94 10/10/20 03:05 67 16 95 10/10/20 03:04 36.7 C 54 L 16 138/74 95
[2020-10-10 12:17] VITALS: BP 126/63; PULSE 59; TEMP 98.8
--- NOTE | 2020-10-10 13:13 | Discharge Summary ---
Date of Service October 10, 2020 Principal Diagnosis cervical myelopathy Discharge Data Allergies Allergy/AdvReac Type Severity Reaction Status Date / Time carvedilol Allergy Severe extreme Verified 10/08/20 06:03 fatigue.pain,difficulty walking,sensitivity to sun bee venom protein (honey bee) Allergy Intermediate sometimes Verified 10/08/20 06:03 swelling at sting site Consultations 10/08/20 12:16 Consult Hospitalist Stat 10/08/20 14:16 Consult Hospitalist Routine Procedures Performed Operation Date: 10/08/20 07:15 Actual Procedures p Anterior Cerivcal Discectomy and Fusion C5-C6, C6-C7, Local Autograft, Allograft, Spinal Cord Monitoring(Not Applicable) - Deborah Monique MD s Removal of Hardware C6-C7,(Not Applicable) - Deborah Monique MD Hospital Course (1) Status post spinal surgery: Patient underwent the above mentioned procedure. There were no complications noted intra-op. Post-operatively, patient was sent to recovery and then floor. In recovery, he was noted to have tremors of his jaw and left upper extremity and a stat consult was placed with hospitalist service with a discussion with neurology. The tremors were believed to be possibly secondary to reactions to medications received intra-op or worsening of a baseline essential tremor, and not due to seizure. Patient was admitted under telemetry for 24 hours to monitor this and the tremors resolved. Pain was well-controlled throughout stay. Drain was removed on post-op day 1. Patient was followed closely by hospitalist service throughout stay and was cleared for discharge medically by this team. His home dose of insulin was adjusted prior to discharge. Patient was able to ambulate, void, and tolerate PO intake at time of discharge. Verbal discharge and follow-up instructions were given. Total Time Total Time Spent Total Time Spent (In Minutes): 25 Discharge Plan Discharge Items Patient Disposition: Home - Self-Care Reason For Visit: Cervical Myelopathy Discharge Diagnosis: Cervical Myelopathy Activity: Per Instructions section Non-emergency contact: Surgeon Call non-emergency contact if: you have any medication questions Follow-up/Referrals: Santy Driscoll MD [Primary Care Provider] - Diet: Carb Consistent or DM2 Addtl Attending Provider Instructions: Anterior Cervical Decompression Fusion (ACDF) Recovery Please do not take your Aspirin home medication for 5 days after surgery. What to expect You've had surgery, the first step toward the goals of decreasing neck and/or arm pain, and stopping symptoms of spinal cord compression from getting worse. Now it's time to focus on healing. By following these tips, you will set yourself up for a successful outcome after surgery. Top 4 things to know 1. Pain in the back of the neck and between the shoulder blades is common after ACDF surgery. It also is normal to have some swallowing difficulty. These usually get better over the next few weeks. If you have trouble breathing, call 911 or go to an emergency room immediately. 2. Do not use nicotine for at least three months. Nicotine will slow down your healing. 3. Avoid taking anti-inflammatory medications (NSAIDs) for six to 12 weeks or until your surgeon tells you it's safe to use them. NSAIDs include ibuprofen (Motrin, Advib), naproxen (Aleve, Naprosyn), meloxicam (Mobic), Celebrex and diclofenac. 4. In some cases, you do not need a collar after surgery. If your surgeon gave you one, you should wear it as directed until your first follow-up appointment. Avoid excessive bending and twisting of your neck after surgery. Your surgeon will decide when your collar can come off. Breathing If you have any trouble breathing or have excessive swelling in your neck, call 911 or go to an emergency room immediately. Pain and weakness Neck pain, pain between the shoulder blades and a funny feeling when you swallow are normal after ACDF. These should get better over the next few weeks. Numbness, tingling and weakness that you had before surgery may take time to improve. Your collar If you were given a collar to wear, the goal of it is to keep your chin up and away from your chest. Your chin needs to be on top of the collar, not down in the collar. Wear your collar until your first follow-up appointment after surgery. You may take the collar off to shower. While the collar is off, keep your head as still as possible and your chin up. Taking care of your incision You can take your dressing off when you get home from the hospital. Underneath the dressing you will have adhesive wound closures (Steri-strips) over your incision when you come home from the hospital. These will fall off on their own within 14 days. If they have not fallen off after 14 days, you can remove them. If your incision has no drainage, it can be left uncovered after three days. Showering You can take a shower three days after surgery. Take your collar off while in the shower. Avoid taking tub baths, swimming and going in hot tubs until the incision is completely healed (four to six weeks). Taking medication Do not take anti-inflammatory medications (NSAIDS) for at least three months after surgery. These drugs can interfere with how you heal. NSAIDs include ibuprofen, Advil, Aleve, naproxen, Naprosyn, Mobic, meloxicam, Celebrex, diclofenac. If you need refills on your prescriptions, contact our office at least two days before you are out of pills so we have sufficient time to process your request. Refill requests on Wednesday afternoons and holidays likely will be addressed on the next day. Start weaning yourself from pain medications as soon as you are able. Remember, pain is a natural part of the healing process. The goal is not to eliminate all pain but to keep you comfortable as you heal. Pain medications should be used only for a short period of time. Before taking Tylenol (acetaminophen), be aware that your pain medication probably has acetaminophen in it. Taking additional Tylenol or acetaminophen can put you over the daily recommended 3,000 milligrams, which can harm your liver. If you are taking a muscle relaxer, one of the side effects is drowsiness. If you feel too drowsy to safely get up and move around, take the muscle relaxer less often. Do not use tobacco products If you had been a smoker or used tobacco, you were required to stop before surgery You've come this far, so why not quit for good. If you cannot do so, you must not use tobacco products for at least three months. Nicotine will keep you from properly healing If you have any other concerns, call our office at: before going to an emergency room. In most cases we can help you or get you an appointment quickly Be active, but no lifting We want you to be active as soon as you get home from the hospital. Get up and walk often. If you go up and down stairs, make sure you hold onto the railing and have someone with you. Avoid bending and twisting your neck as much as you can, and do not lift anything over 10 pounds until your surgeon says it's OK. And no driving You cannot drive until you are no longer taking narcotic pain medications or muscle relaxers and you can move well enough to be safe behind the wheel. Most patients can begin driving after the 6 week postoperative appointment. Your surgeon will let you know when you can start driving Eating Ice and Popsicles can help relieve a sore throat. Eat soft foods that are easy to swallow. Take small bites and chew your food well. You can begin eating other foods gradually as you start to feel better. Constipation and bloating Constipation is a common side effect of taking narcotic pain medication and a good reason to begin tapering yourself off of pain medication as soon as you can. Drink lots of fluids, be active and eat foods high in fiber to help relieve constipation If constipation is bothering you, a stool softener or laxative may help. Try one of the following, and always follow the instructions: Milk of Magnesia, MiraLAX, Dulcolax suppository. Fleet enema, magnesium citrate. When is it an emergency? If you have any of the following symptoms, call 911 or go to an emergency room right away: Trouble breathing Chest pain Excessive neck swelling Significant new weakness since your surgery If you have any other concern, call our office at [phone] before going to an emergency room. In most cases we can help you or get you an appointment quickly. Addtl Head Of Strategy Provider Instructions: Start taking increase Lantus at 35 units daily and continue with the weekly Ozempic injections. Follow-up in with chemical engraver as an outpatient. Pending Studies at Discharge: No Stand-Alone Forms: My [facility] Medications and DC Order Prescriptions: New gabapentin 300 mg Capsule 300 mg PO BID Qty: 28 RF: 0 hydrocodone-acetaminophen 5-325 mg tablet 1 tab PO Q4H PRN (Reason: pain) Qty: 20 RF: 0 hydrocodone-acetaminophen 5-325 mg Tablet 1 - 2 tab PO Q4H PRN (Reason: pain) Qty: 30 RF: 0 Continued atorvastatin 10 mg tablet 10 mg PO DAILY Qty: 30 RF: 5 metoprolol succinate 25 mg tablet extended release 24 hr 25 mg PO DAILY Qty: 30 RF: 5 chlorthalidone 25 mg tablet 25 mg PO QAM Qty: 90 RF: 3 eplerenone 25 mg tablet 25 mg PO DAILY Qty: 90 RF: 3 amlodipine 10 mg tablet 10 mg PO QAM Qty: 90 RF: 3 pantoprazole 20 mg tablet,delayed release (DR/EC) 20 mg PO DAILY 14 Days Qty: 14 RF: 0 citalopram [Celexa] 20 mg Tablet 20 mg PO QAM RF: 0 Changed Lantus U-100 Insulin 100 unit/mL Solution 35 unit SUBCUT QAM Qty: 0 RF: 0 Discontinued meloxicam 7.5 mg tablet 7.5 mg PO DAILY 14 Days Qty: 14 RF: 0 aspirin [Aspir-81] 81 mg Tablet,Delayed Release (Dr/Ec) 81 mg PO QAM RF: 0 acetaminophen [Tylenol Extra Strength] 500 mg Tablet 1,000 mg PO DIRECTED PRN (Reason: Fever Or Pain) RF: 0 Discharge Orders: Discharge Order (Routine); Ordered 10/10/20 Ordered By: Deborah Monique Admission Data Admit Date/Time: 10/08/20 11:40 Attending Provider: Deborah Monique Admit Provider: Deborah Monique Primary Care Provider: Santy Driscoll Other Providers: Deborah Monique ; Isha Steel ; Ernesto Modi ; Glenys Bautista ; Azeb Jackson ; Shalonda Gomez ; Adrianna Amaya ; Gisell Tipton ; Tico Cote ; Naman Koroma ; Alfonso Moura ; Delaney Calle ; Jacqueline Naidu ; Andrea Stacy ; Angela Humphries ; Shi Lee ; Huy Caballero ; Priya Drummond ; Katherine Blas ; Willie Schafer ; Destiny Wade I. ; Bret Dexter ; Kuldeep Peng ; Arline Brownlee Coding Level of Care Code D/C DAY MANAGEMENT <30 MINS Diagnoses Status post spinal surgery Z98.890
--- NOTE | 2020-10-10 15:06 | Pharmacy Report ---
Pharmacy Glycemic Short Note 2 - Date of Service October 10, 2020 - Glycemic Short BSG Results (Last 24 hours): 10/09/20 10/09/20 10/10/20 15:58 20:24 00:15 POC Glucose 264 H 240 H 201 H 10/10/20 10/10/20 08:17 12:14 POC Glucose 191 H 192 H OUTPATIENT ANTIDIABETIC REGIMEN: * Lantus 25 units Qam * A1c 10.2% 09/17/20 ASSESSMENT: 10/10/20: * Patient received total 116 units of insulin yesterday; 40 units basal + 76 units bolus * Fasting BSG was still elevated at 191 mg/dl. Basal dose was increased this AM. * Post-prandial BSGs elevated above 200 yesterday. Novolog CF tightened this AM. CR may need to be tightened as well. Will re-assess tomorrow. 10/09/20: * 70 year old admitted with possible tremors s/p spinal surgery 10/07. Type 2 diabetic managed on Lantus at home * Pharmacy consulted for glycemic management. Received ~43 units total of insulin yesterday, per med rec took 15 units of long acting insulin prior to arrival * BSGs elevated overnight and into this AM - plan to give Lantus 40 units x 1 now (help make up for basal deficit yesterday), tighten novolog to stress of 3 dosing PLAN FOR INPATIENT GLYCEMIC CONTROL: * Hold outpatient diabetes medications (Ozempic) * Basal insulin * Lantus 50 units x 1 today * Bolus insulin: tightened CF * NovoLog per scale ACHS or Q6hrs while NPO * Goal Range: Low 110 mg/dL - High 140 mg/dL * Correction Factor: 10 mg/dL/unit * Nutritional / Prandial insulin per carb ratio of 1 unit per 5 grams CHO consumed PLAN FOR DISCHARGE: * A1c 10.2% - goal <7% * Previous records indicate A1c of 8.6% in 2018. * Recommend increasing Lantus to 35 units SQ QAM on discharge. * Recommend resuming patient's home dose of Ozempic SQ once weekly on discharge. * Patient needs educated on importance of compliance with these meds for better control.
--- NOTE | 2020-10-12 20:51 | Operative Report ---
[facility] Post Operative Report Pre & Post Diagnosis Operation Date: 10/08/20 07:15 Pre-Op Diagnosis: Cervical Myelopathy with severe central stenosis C5-6, prior ACDF C6-7 Post-Op Diagnosis: Cervical Myelopathy with severe central stenosis C5-6, prior ACDF C6-7 I identified the patient and participated in the time-out.: Yes Procedure 1. Removal of hardware anterior cervical spine (anterior cervical plate from C6 to C7) 2. Anterior Cervical Discectomy and Fusion C5-6 3. Anterior Cervical Instrumentation C5-6 4. Anterior Interbody Device C5-6 5. Local Autograft for anterior cervical fusion 6. Allograft, morselized (DBM) Surgeon Deborah Monique MD Compliance Officer Roscoe Wild PA-C Estimated Blood Loss 25 Findings Consistent with Post-Op Diagnosis Specimens none Description of Procedure Implants inserted: 1. K2M [place] Cervical Interbody - 7deg, 13x16, 8mm 2. K2M [place] anterior cervical plate 20mm with 4.0x16mm screwsx2 at C5, 4.5x16mm screwsx2 at C6 3. [employer] [place] DBM Implants removed: 1. Globus Xtend plate with 4 screws Drains: 1. KIKI drain x 1 (10 [place]) Indications: Patient is a 70 year old male with prior ACDF C6-7 in 2018 who presented to my clinic on September 12, 2020 with 6 month history of symptoms consistent with cervical myelopathy with more recent worsening in the last 3 weeks. His exam was concerning for right upper extremity numbness and weakness, lower extremity hyperreflexia and tandem gait difficulties. He had a remote history of stroke affecting the right upper and lower extremity symptoms but described the weakness and balance issues as being new for him and functionally limiting him in his daily activities. MRI imaging was completed and consistent with adjacent level disease with C5-6 severe central stenosis with anterior deformity of cord. CT scan was consistent with fusion at the previous level. Given presence of cervical myelopathy with acute worsening and functional limitation, surgical management was recommended. Informed consent was obtained and patient was booked for above procedure. In assessing patient in clinic, a midline incision was noted and after review of the surgical documentation from prior surgeon, it was unclear whether a left or right sided approach was taken previously. Although patient did not have any clinical hoarseness, an ENT consult was completed pre-op to ensure no vocal cord dysfunction that might alter the laterality of the approach. No deficits were noted by ENT after an upper scope performed as an outpatient prior to the operation. On day of surgery, patient was identified in pre-op holding area. History and Physical was updated, surgical site was marked, and consent was confirmed. Risks , benefits and alternatives were discussed again and I answered all their questions. Description of procedure: Patient was brought to the operating room and underwent general anesthesia. Patient was placed supine on the operating table with neck in gentle extension. Face, eyes, bony prominences, and peripheral nerves were well protected. SCDs were applied to bilateral legs to reduce risk of DVT. Anterior cervical region was prepped and draped in standard fashion. A time-out was performed and documented. This included confirmation of administration of prophylactic ant ibiotics prior to incision. Anterior Simmons-Peacock type approach was made on the right side. The carotid artery was palpated and retracted laterally. The anterior cervical spine was visualized and the previous plate was palpate and exposed. The longus coli was elevated bilaterally and a self retaining retractor placed. The previous hardware was removed using dedicated [employer] drivers. This involved moving the blocking set screws into an unlocked position followed by removal of the 4 plate screws. The plate was then removed. A straight curette was used to debride the previous screw holes and DBM allograft was used to fill the screw holes. The level was inspected for fusion and no motion was identified. Dissection identified bridging bone across the level. Anterior discectomy was then performed at the C5-6 level with disc knife, ronguers, and currettes. Anterior osteophytes were removed and saved for local autograft. [place] type distraction pins were placed into the vertebral body abo ve and below the disc. Gentle distraction was applied. Posterior discectomy with decompression of the central spinal cord and bilateral foraminal areas was performed with high speed tawana, curettes, and ronguers. This included the takedown of PLL for assessment of any disc protrusion posterior to it. Once the decompression was judged to be adequate, attention was turned to the preparation of the interspace for fusion. A tawana and currettes were used to prepare endplates for fusion with flat, bleeding surfaces. A trial sizer was used to size the interbody device. The interbody device was packed with local bone and DBM allograft. The interbody device was placed in the interspace and the distraction pins were removed. Bone wax was used to control bleeding from the pin sites. An appropriate size anterior cervical plate was selected. The screw sites were pre-drilled. The plate was secured with two screws into the vertebral body above and two into the body below. New screw holes at the inferior vertebral body had significant spacing from prior screw holes. To increase stability, 4.5mm screws were used at the caudal level and found to have strong bony purchase. The self retaining retractor was removed and the wound checked for hemostasis. Lateral portable x-ray imaging confirmed the correct surgical level and implant positions. The wound was irrigated. There was good hemostasis. A KIKI drain was inserted below the incision. The platsyma layer was closed with 2-0 vicryl and the skin with 3-0 monocryl. Steristrips, and a sterile dressing were applied. The patient was awakened and taken to the recovery room in stable condition. Neuromonitoring was performed throughout the case using SSEP, MEP, EMG and vocal cord monitoring. No concerning neuromonitoring findings were noted throughout the case. There were no intraoperative complications noted. Sponge and needle counts were correct x2 at the conclusion of the case. I attest to the content of the Intraoperative Record and any orders documented therein. Any exceptions are noted below.
== END 2020-10-10 15:24 | disposition home or self-care (01) | DRG 30 ==
LOC: ASU 05:29 → 2S 11:40 → 3E 10-09 16:55